=== PATIENT | male | born 1935 | race Caucasian/White ===

== ENCOUNTER → 2016-10-21 | Outpatient (CLI) | payer OTHER ==
[~2016-10-21] MED LIST: AMLO5TAB4 PO; ASPI81TA28 PO; ATOR10TA88 PO; DABI150C PO; DIGO0.122 PO; DORZ1SOL6 OPB; HYDR-5688 PO; OMEG10007 PO; PRS5 PO; SILO8CAP PO; SNK PO; TNR50 PO; TRAM-10 PO
[2016-10-21 18:10] LABS: ALT/SGPT 20 U/L (12-78); AST/SGOT 17 U/L (15-37); BLOOD UREA NITROGEN 24 mg/dl (7-18); BUN/CREATININE RATIO 21.5 (10-20); CALCIUM 9.6 mg/dl (8.5-10.1); CARBON DIOXIDE 24 mmol/L (21-32); CHLORIDE 108 mmol/L (98-107); GLUCOSE 87 mg/dl (70-99); POTASSIUM 4.3 mmol/L (3.5-5.1); SODIUM 140 mmol/L (136-145)
[2016-10-21 18:20] LABS: ALB/GLOB RATIO 1.2 (0.9-2); ALKALINE PHOSPHATASE 58 U/L (45-117); THYROID STIMULATING HORMONE 0.921 uIu/ml (0.300-4.500)
== END | disposition home or self-care (01) ==
LOC: C.LABBC 14:37
PROVIDERS: ATTEND Internal Medicine Cardiovascular Disease
DX: N40.1 Benign prostatic hyperplasia with lower urinary tract symptoms (principal); E78.5 Hyperlipidemia, unspecified; I10 Essential (primary) hypertension; K59.09 Other constipation; I48.0 Paroxysmal atrial fibrillation

== ENCOUNTER → 2016-10-25 | Outpatient (CLI) | payer OTHER ==
[2016-10-25 14:09] LABS: CHOLESTEROL/HDL RATIO 3.4
== END | disposition home or self-care (01) ==
LOC: C.LABBC 11:31
PROVIDERS: ATTEND Internal Medicine Cardiovascular Disease
DX: E78.5 Hyperlipidemia, unspecified (principal); I10 Essential (primary) hypertension

== ENCOUNTER → 2016-12-28 | Outpatient (CLI) | payer OTHER | END | disposition home or self-care (01) | LOC: C.LABSPEC 17:02 | PROVIDERS: ATTEND Urology | DX: R31.9 Hematuria, unspecified (principal); R35.1 Nocturia ==

== ENCOUNTER → 2017-03-03 | Outpatient (CLI) | payer OTHER ==
[~2017-03-03] MED LIST changes: +ATOR10TA82 PO; -ATOR10TA88 PO
== END | disposition home or self-care (01) ==
LOC: C.LABSPEC 17:14
PROVIDERS: ATTEND Urology
DX: N39.0 Urinary tract infection, site not specified (principal)

== ENCOUNTER → 2017-03-11 | Outpatient (CLI) | payer OTHER ==
--- NOTE | 2017-03-11 10:53 | DIAGNOSTIC IMAGING REPORT ---
THORACIC SPINE 2-VIEWS, L-SPINE MIN 4 VIEWS ROUTINE HISTORY: 82 years-old Male ACUTE BACK PAIN acute back pain status post trauma COMPARISON: Chest radiograph 10/14/2015, CT 09/11/2014 TECHNIQUE: 2 views of the thoracic spine and 5 views of the lumbar spine FINDINGS: THORACIC: Calcified hilar lymph nodes are present. Cardiac pacer leads overlie the heart, only partially imaged. There is atherosclerosis of the aorta. Fusion hardware of the cervical spine is noted. There is atherosclerosis of the carotid bulbs. Multilevel endplate bridging osteophytosis, intervertebral disc space narrowing and facet arthropathy is noted. No acute fracture or subluxation is identified. LUMBAR: The bones appear mildly demineralized. There are 5 lumbar type vertebral segments present. Right hip arthroplasty partially imaged. Multilevel prominent osteophytosis with facet arthropathy and intervertebral disc space narrowing noted. Disc space narrowing is most pronounced at the L3-L4. Remote compression fracture or limbus vertebra noted at L3, unchanged. No acute fracture or subluxation. IMPRESSION: 1. Mildly demineralized bones without acute fracture or subluxation. 2. Multilevel endplate spurring, facet arthropathy and intervertebral disc space narrowing. The above report was generated using voice recognition software. It may contain grammatical, syntax or spelling errors. Electronically signed by: Brannon Walker M.D. 03/11/2017 10:51 AM Dictated Date/Time: 03/11/2017 10:47 AM
[2017-03-11 10:56] LABS: BASO % 0.1 %; BASO ABS # 0.01 K/uL (0-0.2); COMPLETE YES; EOS % 1.5 %; HEMATOCRIT 44.6 % (42-52); IG% 0.6 %; LYMPH % 24.1 %; LYMPH ABS # 1.73 K/uL (1.2-3.4); MEAN CELL VOLUME 96.3 fL (80-100); MEAN CORPUSCULAR HGB CONC 33.2 g/dl (32-36); MEAN PLATELET VOLUME 11.1 fL (7.4-10.4); MONO % 8.3 %; NEUT % 65.4 %; PLATELET COUNT 155 K/uL (130-400); RED BLOOD COUNT 4.63 M/uL (4.7-6.1); WHITE BLOOD COUNT 7.19 K/uL (4.8-10.8)
== END | disposition home or self-care (01) ==
LOC: C.RADBC 09:03
PROVIDERS: ATTEND Internal Medicine
DX: M48.05 Spinal stenosis, thoracolumbar region (principal); M25.78 Osteophyte, vertebrae; M47.815 Spondylosis without myelopathy or radiculopathy, thoracolumbar region

== ENCOUNTER → 2017-04-07 | Outpatient (CLI) | payer OTHER | END | disposition home or self-care (01) | LOC: C.LABSPEC 17:15 | PROVIDERS: ATTEND Urology | DX: N39.0 Urinary tract infection, site not specified (principal) ==

== ENCOUNTER → 2017-05-25 | Outpatient (CLI) | payer OTHER ==
[2017-05-25 18:10] LABS: BLOOD UREA NITROGEN 24 mg/dl (7-18); CREATININE 0.96 mg/dl (0.60-1.40)
== END | disposition home or self-care (01) ==
LOC: C.LAB 17:12
PROVIDERS: ATTEND Urology
DX: R33.9 Retention of urine, unspecified (principal); N39.0 Urinary tract infection, site not specified; R31.0 Gross hematuria

== ENCOUNTER → 2017-05-27 | Outpatient (CLI) | payer OTHER ==
[~2017-05-27] MED LIST changes: +OPTIRAY 320 IV PRN
--- NOTE | 2017-05-27 17:26 | DIAGNOSTIC IMAGING REPORT ---
ABD/PELVIS COMBO CLINICAL HISTORY: 82 years-old Male presenting with R31.0 Gross hematuria. TECHNIQUE: Multidetector CT of the abdomen and pelvis was performed before and after the administration of intravenous contrast. IV contrast: 120 mL of Optiray 320. A dose lowering technique was used consistent with the principles of ALARA (as low as reasonably achievable). COMPARISON: 09/11/2014. CT DOSE (mGy.cm): The estimated cumulative dose is 1657.14 mGycm. FINDINGS: [employer] Representative topogram: Total right hip arthroplasty. Lung bases: Minimal basilar opacities, likely atelectasis. Partially visualized leads to the right atrium and right ventricular apex. Normal heart size. Coronary artery calcification. Calcified left hilar lymph node. No pericardial or pleural effusion. Liver: Nodular contour of the liver with relative expansion of the fat within the fissure for ligamentum teres. No focal lesion. Normal density. Patent hepatic vasculature. Biliary: No intrahepatic or extrahepatic biliary ductal dilatation. Normal gallbladder. Pancreas: Mild parenchymal atrophy. Scattered coarse calcifications in the pancreatic parenchyma suggest a history of chronic pancreatitis. No pancreatic inflammatory change at this time. Spleen: Normal. Splenule noted. Adrenal glands: Normal. Kidneys and ureters: Normal. No nephrolithiasis. Normal excretion from the bilateral kidneys. Few hypodensities noted in the kidneys, likely simple cysts. No hydronephrosis. No filling defects within the renal collecting systems. No evidence of a solid renal mass. Normal ureters. Bladder: Mild circumferential bladder wall thickening. Allowing for lack of homogeneity of contrast opacification of the bladder, no focal masslike thickening in the bladder. Pelvic organs: Prostate enlargement likely secondary to benign prostatic hyperplasia. Prominent median lobe hypertrophy. Bowel: Diverticulosis of the proximal sigmoid colon. Mild stool burden throughout normal caliber colon no bowel obstruction. Peritoneal cavity: No free fluid or intraperitoneal gas. Lymph nodes: No enlarged lymph nodes in the abdomen or pelvis. Vasculature: Atherosclerosis of the normal caliber abdominal aorta. IVC patent. Abdominal wall: Small fat-containing umbilical hernia. Fat-containing left inguinal hernia. Musculoskeletal: Total right hip arthroplasty. Limbus vertebral anatomy at L3 suspected. Degenerative changes of the spine and sacroiliac joints. IMPRESSION: 1. Circumferential bladder wall thickening likely indicating chronic bladder outlet obstruction. 2. Prostatomegaly likely indicates underlying benign prostatic hyperplasia. 3. No nephrolithiasis or hydronephrosis. 4. No solid renal mass or evidence of mass lesion in the urinary collecting system. 5. Relatively nodular appearance of the liver. This is equivocal for cirrhosis. Correlate for hepatocellular risk factors. 6. Diverticulosis. Electronically signed by: Shawn Rivers M.D. 05/27/2017 5:25 PM Dictated Date/Time: 05/27/2017 5:14 PM
== END | disposition home or self-care (01) ==
LOC: C.CTS 16:15
PROVIDERS: ATTEND Urology
DX: N40.0 Benign prostatic hyperplasia without lower urinary tract symptoms (principal); N32.9 Bladder disorder, unspecified; K57.90 Diverticulosis of intestine, part unspecified, without perforation or abscess without bleeding; K76.89 Other specified diseases of liver

== ENCOUNTER → 2017-07-06 | Outpatient (CLI) | payer OTHER ==
[~2017-07-06] MED LIST changes: -OPTIRAY 320 IV PRN
--- NOTE | 2017-07-06 10:58 | DIAGNOSTIC IMAGING REPORT ---
LUMBAR SPINE WITHOUT HISTORY: 82 years-old Male LUMBAR RADICULOPATHY acute lumbar spine pain with radicular symptoms of the bilateral lower extremities. COMPARISON: CT abdomen and pelvis 05/27/2017. TECHNIQUE: Multiple axial CT images of the lumbar spine were obtained without contrast. Coronal and sagittal reformatted images were obtained from the axial data set and were submitted for review. A dose lowering technique was used consistent with the principals of ALARA. FINDINGS: The bones appear moderately demineralized. No acute fracture or subluxation is identified. The posterior elements appear intact. No evidence of sacral insufficiency fracture. The imaged bilateral iliac bones also appear intact. Multilevel endplate spurring and facet arthrosis with intervertebral disc space narrowing seen most pronounced at L3-L4. The imaged paraspinal structures, intra-abdominal and intrapelvic contents demonstrate no acute abnormality. Mild nonspecific bilateral perinephric stranding. Moderate atherosclerosis of the aorta without aneurysm. No pathologic adenopathy identified. Exophytic intermediate attenuating 9 mm lesion of the inferior pole left kidney is indeterminate. T12-L1: Moderate facet arthrosis with small posterior disc osteophyte complex formation flattening the ventral thecal sac. No significant central canal or foraminal narrowing identified. L1-L2: Posterior spondylitic spurring with small circumferential annular disc bulge and moderate facet arthrosis. There is flattening of the ventral thecal sac without significant central canal or left foraminal narrowing. There is mild right foraminal stenosis. L2-L3: Moderate-sized circumferential annular disc bulge with ligamentum flavum thickening and moderate facet arthrosis. Thecal sac is narrowed to 7 mm in AP dimension resulting in moderate central canal stenosis. There is also mild to moderate bilateral foraminal narrowing. L3-L4: 4 mm retrolisthesis L3 on L4 with moderate to severe intervertebral disc space narrowing, ligamentum flavum thickening and at least moderate facet arthrosis. Additionally, there is posterior spondylitic spurring with posterior annular disc bulge which causes mild central canal and moderate bilateral foraminal narrowing. L4-L5: Posterior spondylitic spurring with circumferential annular disc bulge, severe facet arthrosis and ligamentum flavum thickening. Central canal is narrowed to approximately 4.5 mm in AP dimension with severe central canal and severe bilateral foraminal narrowing. L5-S1: Posterior disc bulge favoring the right lateral recess and right foramen is noted along with posterior spondylitic spurring, severe facet arthrosis and ligament of flavum thickening. These changes cause mild central canal, moderate to severe right and moderate left foraminal narrowing. IMPRESSION: 1. Multilevel advanced discogenic degenerative changes and facet arthrosis as detailed above without evidence of acute fracture or subluxation. 2. At L4-L5, posterior spondylitic spurring with circumferential annular disc bulge, severe facet arthrosis and ligamentum flavum thickening causes severe central canal and severe bilateral foraminal narrowing. 3. At L2-L3, moderate sized circumferential annular disc bulge with ligamentum flavum thickening and moderate facet arthrosis causes moderate central canal and mild to moderate bilateral foraminal narrowing. 4. Indeterminate 9 mm soft tissue attenuating lesion of the inferior pole left kidney suggests complex cyst or neoplasm. This could be correlated with CT renal protocol to further evaluate. The above report was generated using voice recognition software. It may contain grammatical, syntax or spelling errors. Electronically signed by: Brannon Walker M.D. 07/06/2017 10:56 AM Dictated Date/Time: 07/06/2017 10:43 AM
== END | disposition home or self-care (01) ==
LOC: C.CTS 10:21
PROVIDERS: ATTEND Pain Medicine Interventional Pain Medicine
DX: M51.16 Intervertebral disc disorders with radiculopathy, lumbar region (principal); N28.9 Disorder of kidney and ureter, unspecified

== ENCOUNTER → 2017-11-14 | Outpatient (CLI) | payer OTHER ==
[2017-11-14 13:06] LABS: BASO % 0.6 %; BASO ABS # 0.03 K/uL (0-0.2); EOS % 2.7 %; EOS ABS # 0.13 K/uL (0-0.5); HEMATOCRIT 43.8 % (42-52); HEMOGLOBIN 14.5 g/dL (14.0-18.0); IG# 0.02 K/uL (0.00-0.02); LYMPH % 32.4 %; LYMPH ABS # 1.56 K/uL (1.2-3.4); MEAN CELL VOLUME 95.2 fL (80-100); MEAN CORPUSCULAR HEMOGLOBIN 31.5 pg (25-34); MEAN CORPUSCULAR HGB CONC 33.1 g/dl (32-36); MEAN PLATELET VOLUME 11.3 fL (7.4-10.4); MONO % 6.9 %; MONO ABS # 0.33 K/uL (0.11-0.59); NEUT ABS # 2.74 K/uL (1.4-6.5); PLATELET COUNT 168 K/uL (130-400); RED CELL DISTRIBUTION WIDTH CV 14.2 % (11.5-14.5); RED CELL DISTRIBUTION WIDTH SD 49.5 fL (36.4-46.3); WHITE BLOOD COUNT 4.81 K/uL (4.8-10.8)
[2017-11-14 14:04] LABS: ALBUMIN 3.8 gm/dl (3.4-5.0); ALKALINE PHOSPHATASE 84 U/L (45-117); ALT/SGPT 24 U/L (12-78); AST/SGOT 21 U/L (15-37); BLOOD UREA NITROGEN 24 mg/dl (7-18); CALCIUM 8.8 mg/dl (8.5-10.1); CARBON DIOXIDE 26 mmol/L (21-32); CHOLESTEROL 120 mg/dl (0-200); CREATININE 1.05 mg/dl (0.60-1.40); GLUCOSE 97 mg/dl (70-99); LDL CHOLESTEROL CALCULATED 73 mg/dl; POTASSIUM 4.4 mmol/L (3.5-5.1); SODIUM 142 mmol/L (136-145)
== END | disposition home or self-care (01) ==
LOC: C.LABBC 09:43
PROVIDERS: ATTEND Internal Medicine Cardiovascular Disease
DX: E78.5 Hyperlipidemia, unspecified (principal); I10 Essential (primary) hypertension; I49.5 Sick sinus syndrome; G47.33 Obstructive sleep apnea (adult) (pediatric); I48.0 Paroxysmal atrial fibrillation; G95.9 Disease of spinal cord, unspecified; R97.20 Elevated prostate specific antigen [PSA]; Z95.0 Presence of cardiac pacemaker; Z86.73 Personal history of transient ischemic attack (TIA), and cerebral infarction without residual deficits; Z79.01 Long term (current) use of anticoagulants

== ENCOUNTER → 2017-12-02 | Outpatient (CLI) | payer OTHER | END | disposition home or self-care (01) | LOC: C.LABBC 10:20 | PROVIDERS: ATTEND Urology | DX: R31.0 Gross hematuria (principal); N39.0 Urinary tract infection, site not specified ==

== ENCOUNTER 2022-08-25 07:31 | Inpatient (IN) ==
--- NOTE | 2022-08-04 12:16 | PAT Medication Instructions ---
Medication Instructions Date of Service August 04, 2022 Home Medications Medication Instructions Recorded dabigatran etexilate 150 mg 150 mg PO BID #180 caps 07/27/21 capsule (Pradaxa) atorvastatin 10 mg tablet 10 mg PO QPM #90 tabs 12/04/21 finasteride 5 mg tablet 5 mg PO QPM #90 tabs 02/10/22 potassium chloride 10 mEq 10 meq PO .COMPLEX #30 tabs 07/07/22 tablet,extended release multivitamin (Multiple Vitamins tablet) 1 tab PO QAM acetaminophen 650 mg tablet,extended release (Arthritis Pain Relief (acetaminophen) ER) 650 mg PO Q12H PRN Pain omega-3 fatty acids 1,000 mg capsule 1,000 mg PO QPM sildenafil (pulm.hypertension) 20 mg tablet 20 mg PO DAILY PRN Sexual Activity dabigatran etexilate 150 mg capsule (Pradaxa) 150 mg PO BID atorvastatin 10 mg tablet 10 mg PO QPM finasteride 5 mg tablet 5 mg PO QPM potassium chloride 10 mEq tablet,extended release 10 meq PO .COMPLEX amlodipine 2.5 mg tablet 2.5 mg PO QAM furosemide 20 mg tablet 20 mg PO DAILY PRN Edema tamsulosin 0.4 mg capsule 0.4 mg PO QAM turmeric 400 mg capsule 400 mg PO QAM ASK your prescriber and surgeon dabigatran etexilate 150 mg capsule (Pradaxa) 150 mg PO BID STOP taking 2 weeks before surgery omega-3 fatty acids 1,000 mg capsule 1,000 mg PO QPM turmeric 400 mg capsule 400 mg PO QAM STOP taking 48 hours before surgery sildenafil (pulm.hypertension) 20 mg tablet 20 mg PO DAILY PRN Sexual Activity DO NOT take the morning of surgery multivitamin (Multiple Vitamins tablet) 1 tab PO QAM potassium chloride 10 mEq tablet,extended release 10 meq PO .COMPLEX furosemide 20 mg tablet 20 mg PO DAILY PRN Edema Take morning of surgery With a small sip of water, OTHERWISE NOTHING TO EAT OR DRINK AFTER MIDNIGHT: acetaminophen 650 mg tablet,extended release (Arthritis Pain Relief (acetaminophen) ER) 650 mg PO Q12H PRN Pain (if needed) amlodipine 2.5 mg tablet 2.5 mg PO QAM tamsulosin 0.4 mg capsule 0.4 mg PO QAM Take evening before surgery acetaminophen 650 mg tablet,extended release (Arthritis Pain Relief (acetaminophen) ER) 650 mg PO Q12H PRN Pain (if needed) atorvastatin 10 mg tablet 10 mg PO QPM finasteride 5 mg tablet 5 mg PO QPM potassium chloride 10 mEq tablet,extended release 10 meq PO .COMPLEX (if needed) furosemide 20 mg tablet 20 mg PO DAILY PRN Edema (if needed) Insulin Dependent Diabetic Patients * Test your blood sugar the morning of surgery * If Blood Sugar is GREATER THAN 150, take HALF of your regular dose of: * If Blood Sugar is LESS THAN 150, DO NOT TAKE ANY: Other Notes If you have any questions please call us at [phone] or [phone] or [phone] or [phone]
--- NOTE | 2022-08-11 11:37 | Anesthesiology Consultation ---
Date of Service August 11, 2022 Assessment & Plan (1) Encounter for pre-operative examination: - upcoming [place] cardiology pre-op evaluation 08/13/22. - Pt and son were instructed to check with surgeon and prescriber on Pradaxa instructions and to call with Eliquis instructions if medication changes prior to surgery. - Medtronic pacemaker. - cardiology 04/28/22 [place]: "...Hypertension, LVH, Hypercholesterolemia, Paroxysmal Atrial Fibrillation, CVA s/p tPA, June 2012, and Sick Sinus Syndrome s/p Permanent Dual Chamber Pacemaker who presents today for follow-up in our Device Clinic...pacemaker is quickly approaching HELADIO and we will arrange to have his pacemaker generator exchanged out for a Medtronic Device...remains stable cardiac standpoint his exertional tolerance and stamina remained stable. Patient still gets up every day goes to work and he takes care of his property...is able walk using a rolling walker...has not experienced any angina pectoris or anginal equivalent symptoms, had overt evidence of heart failure, nor has he had any symptoms attributable to his rate controlled atrial fibrillation which he appears to be in most of the time...has not had any new neurologic symptoms suggestive of recurrent CVA. He does not experience claudication with his day-to-day activities. Patient does experience some lower extremity edema throughout the day but it is typically resolved when he first wakes up in the morning. He does use a diuretic on occasion and that helps to minimize the edema... is compliant with his medications and has not had any adverse side effects. Due to his insurance, the patient will need to switch from Pradaxa 150 mg which he currently has a large supply of -- to Eliquis 5 mg b.i.d. Patient is leaving to go to [place] on 05/18/2022 and is planning to come back in June 2022. He does have a gse mechanic in [place] if anything is necessary while he is there -- however we will plan on having his pacemaker generator changed out here before he leaves. This will be scheduled with Dr. King. Since we are not putting in new leads, it is reasonable to delay his follow-up device interrogation until June of 2022..." Chart Review Chart Review: Pending: Refer to Additional Notes / Consult section and Patient seen in Pre Admission Testing Teaching & Discussion Pre-Anesthesia Teaching/Discussion Notes: Instructed NPO after midnight before surgery, except medications with 15 cc of water. Medication instructions provided according to the PAT guidelines. History Surgery Operation Date: 08/25/22 11:35 Proposed Procedures p L4-L5 Decompression, Spinal Cord Monitoring - Malcom Gregg DO Height/Weight Height: 5 ft 6 in Weight: 83.461 kg Allergies Allergy/AdvReac Type Severity Reaction Status Date / Time diazepam Allergy Unknown per PCP Verified 08/04/22 10:57 note Medications Home Medications Medication Instructions Recorded Confirmed Last Taken multivitamin (Multiple Vitamins 1 tab PO QAM 11/17/18 08/04/22 02/28/21 tablet) acetaminophen 650 mg 650 mg PO Q12H PRN Pain 08/07/20 08/04/22 Unknown tablet,extended release (Arthritis Pain Relief (acetaminophen) ER) omega-3 fatty acids 1,000 mg 1,000 mg PO QPM 11/03/20 08/04/22 02/28/21 capsule sildenafil (pulm.hypertension) 20 20 mg PO DAILY PRN Sexual Activity 03/01/21 08/04/22 Unknown mg tablet atorvastatin 10 mg tablet 10 mg PO QPM #90 tabs 12/04/21 08/04/22 Unknown finasteride 5 mg tablet 5 mg PO QPM #90 tabs 02/10/22 08/04/22 Unknown potassium chloride 10 mEq 10 meq PO .COMPLEX #30 tabs 07/07/22 08/04/22 Unknown tablet,extended release amlodipine 2.5 mg tablet 2.5 mg PO QAM 08/04/22 08/04/22 Unknown furosemide 20 mg tablet 20 mg PO DAILY PRN Edema 08/04/22 08/04/22 Unknown tamsulosin 0.4 mg capsule 0.4 mg PO QAM 08/04/22 08/04/22 Unknown turmeric 400 mg capsule 400 mg PO QAM 08/04/22 08/04/22 Unknown dabigatran etexilate 150 mg 150 mg PO BID #180 caps 08/09/22 Unknown capsule (Pradaxa) Past Medical History Medical History (Updated 08/11/22 @ 12:04 by Lu Ward PA-C) Afib follows with Dr. Gates BPH (benign prostatic hyperplasia) Chronic constipation Chronic prostatitis Depression Difficulty with insertion of urinary catheter Dyslipidemia Hearing deficit [place] History of COVID-2021 > no hospitalized> symptoms resolved History of stroke 2012. RUE/RLE weakness. HTN (hypertension) controlled, stable per pt Incomplete bladder emptying Left ventricular hypertrophy Nocturia Sick sinus syndrome s/p pacemaker Sleep apnea unable to tolerate CPAP Spondylolisthesis of cervical region Stenosis, 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 Patient denies h/o seizures, heart attack, heart failure, DM, blood clots or bl ood transfusions. Exercise / Class Metabolic Activity III < 4 Walking/Shop/Light housework (denies chest discomfort or shortness of breath with usual activities) Past Family History Family History Brother Alzheimer disease Deafness Mother Hypertension Other Family history non-contributory Past Surgical History Surgical History History of arthroscopy of right knee History of cardiac radiofrequency ablation History of colonoscopy History of ear surgery Rt History of right hip replacement History of transurethral resection of prostate S/P placement of cardiac pacemaker placed 2012. SSS. battery changed 2022. medtronic. checked within last 2 mo. Past Anesthesia History No Hx of Anesthesia Complications and No Family Hx of Anesthesia Complications History of PONV No Hx of PONV and No Hx of Motion Sickness Social History Smoking Status: Never smoker Do You Dip or Chew Tobacco: No Hx Alcohol Use: Yes Alcohol type: wine alcohol intake frequency: a few times a month Hx Substance Use: No substance use type: does not use Review of Systems Patient denies chest pain, shortness of breath, dyspnea on exertion, reflux, fever, chills, cough, wheezing, or palpitations. Physical Exam Vital Signs Vitals BP 132/80 P 66 SP02 98% on RA RESP 18 Physical Full cervical extension range of motion without pain TMD 3.5 finger breadths Mallampati Score Dentition: multiple caps/crowns, denies chipped or loose teeth, implants or bridges Lungs: normal respiratory effort. Clear throughout to auscultation, no adventitious breath sounds Cardiac: regular rate and rhythm, no murmurs noted Carotid arteries: negative bruit bilat Lab Results Anesthesia Preop Results Results Anesthesia Widget: WBC 6.15 K/ul (4.8-10.8) 08/11/22 Hgb 17.0 g/dl (14.0-18.0) 08/11/22 Hct 50.1 % (42.0-52.0) 08/11/22 Plt 131 K/uL (130-400) 08/11/22 Na 142 mmol/L (136-145) 08/11/22 K 4.0 mmol/L (3.5-5.1) 08/11/22 Cl 107 mmol/L (98-107) 08/11/22 CO2 29 mmol/L (21-32) 08/11/22 BUN 20 mg/dl (6-23) 08/11/22 Creat 0.96 mg/dl (0.6-1.4) 08/11/22 Glucose Level 96 mg/dl (70-99(Fasting)) 08/11/22 PT 13.8 Seconds (9.0-12.0) H 08/11/22 PTT 41.9 Seconds (21.0-31.0) H 08/11/22 INR 1.3 (0.9-1.1) H 08/11/22 Urine Color Yellow 08/11/22 Urine Appearance Clear (Clear) 08/11/22 Urine pH 6.5 (4.5-7.5) 08/11/22 Urine Specific [place] 1.018 (1.000-1.030) 08/11/22 Urine Protein Negative (Negative) 08/11/22 Urine Glucose (UA) Negative (Negative) 08/11/22 Urine Ketones Negative (Negative) 08/11/22 Urine Blood Negative (Negative) 08/11/22 Urine Nitrite Negative (Negative) 08/11/22 Urine Bilirubin Negative (Negative) 08/11/22 Urine Urobilinogen Negative (Negative) 08/11/22 Urine Leukocyte Esterase Negative (Negative) 08/11/22 Blood Type A Positive 08/11/22 Antibody Screen NEGATIVE 08/11/22 Testing Electrocardiogram Date: 08/11/22 Ventricular paced rhythm, rate 70 bpm Chest X-Ray Date: 08/11/22 Dual lead pacemaker is seen. Cardiomegaly is noted. The lungs are clear. Trace bilateral pleural effusions. IMPRESSION: Trace bilateral pleural effusions. Otherwise no acute abnormality. Other Testing Pacemaker 05/06/22 Medtronic Mode AAIR DDDR Neck CTA 03/01/21 1. No stenosis or dissection within the bilateral common carotid, cervical internal carotid or vertebral arteries. 2. Mild to moderate plaque within the proximal bilateral internal carotid arteri es without stenosis. COVID-19 Risk Screen Screening Information COVID-19 Screen Date: 08/11/22 Exposure 21 Days Family/Household +COVID Last 21 Days: No Exposure 10 Days Any COVID Exposure Last 10 Days: No Symptoms Last 10 Days Experienced COVID Sx Last 10 Days: No + COVID 0-90 Days COVID + in Last 0-90 Days: No
[~2022-08-25 07:31] MED LIST changes: +ACETAMINOPHEN 500 MG TAB PO SCH; -AMLO5TAB4 PO; -ASPI81TA28 PO; -ATOR10TA82 PO; +CeleBREX 200 MG CAP PO SCH; -DABI150C PO; -DIGO0.122 PO; -DORZ1SOL6 OPB; +GABAPENTIN 300 MG CAP PO SCH; -HYDR-5688 PO; +LR 15ML/HR IV SCH; -OMEG10007 PO; -PRS5 PO; -SILO8CAP PO; -SNK PO; -TNR50 PO; -TRAM-10 PO; +ceFAZolin 2000MG 2,000 MG/15 ML SYR IV SCH
[2022-08-25] MEDS ORDERED: ATROPINE SULFATE 0.1 MG/ML 10ML SYR IV PRN (08:37)
[2022-08-25] MEDS ORDERED: HYDROmorphone INJ 2 MG/ML SYR/VIAL IV PRN (08:37)
[2022-08-25] MEDS ORDERED: ePHEDrine sulfate 50 MG/ML AMP IV PRN (08:37)
[2022-08-25] MEDS ORDERED: ONDANSETRON INJ 2 MG/ML 2 ML VIAL IV PRN ×2 (08:37→12:17)
--- NOTE | 2022-08-25 08:56 | History & Physical Bridge Note ---
Date of Service August 25, 2022 History & Physical Bridge Note I have examined the patient, reviewed the History & Physical and in the interval since the performance of the History & Physical I have noted the following changes of clinical significance: no changes noted
--- NOTE | 2022-08-25 08:57 | History & Physical Report ---
Date of Service August 25, 2022 Assessment & Plan (1) Neurogenic claudication due to lumbar spinal stenosis: Plan: L4-L5 decompression History of Present Illness Chief Complaint: Back and bilateral leg pain Primary Care Provider: Shawn Gilbert MD This is an 87-year-old male presents with chronic persistent back and leg pain after failing course of nonoperative care is here for surgical invention. Allergies Allergy/AdvReac Type Severity Reaction Status Date / Time diazepam Allergy Unknown per PCP Verified 08/25/22 08:10 note Home Medications Medication Instructions Recorded Confirmed Type multivitamin (Multiple Vitamins 1 tab PO QAM 11/17/18 08/25/22 History tablet) acetaminophen 650 mg 650 mg PO Q12H PRN Pain 08/07/20 08/25/22 History tablet,extended release (Arthritis Pain Relief (acetaminophen) ER) omega-3 fatty acids 1,000 mg 1,000 mg PO QPM 11/03/20 08/25/22 History capsule sildenafil (pulm.hypertension) 20 20 mg PO DAILY PRN Sexual Activity 03/01/21 08/25/22 History mg tablet atorvastatin 10 mg tablet 10 mg PO QPM #90 tabs 12/04/21 08/25/22 Rx finasteride 5 mg tablet 5 mg PO QPM #90 tabs 02/10/22 08/25/22 Rx potassium chloride 10 mEq 10 meq PO .COMPLEX #30 tabs 07/07/22 08/25/22 Rx tablet,extended release amlodipine 2.5 mg tablet 2.5 mg PO QAM 08/04/22 08/25/22 History furosemide 20 mg tablet 20 mg PO DAILY PRN Edema 08/04/22 08/25/22 History tamsulosin 0.4 mg capsule 0.4 mg PO QAM 08/04/22 08/25/22 History turmeric 400 mg capsule 400 mg PO QAM 08/04/22 08/25/22 History dabigatran etexilate 150 mg 150 mg PO BID #180 caps 08/09/22 08/25/22 Rx capsule (Pradaxa) Past Med/Surg History Medical History Afib BPH (benign prostatic hyperplasia) Chronic constipation Chronic prostatitis Depression Difficulty with insertion of urinary catheter Dyslipidemia Hearing deficit History of COVID-19 History of stroke HTN (hypertension) Incomplete bladder emptying Left ventricular hypertrophy Nocturia Pacemaker battery depletion Sick sinus syndrome Sleep apnea Spondylolisthesis of cervical region Stenosis, 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 Surgical History History of arthroscopy of right knee History of cardiac radiofrequency ablation History of colonoscopy History of ear surgery History of right hip replacement History of transurethral resection of prostate S/P placement of cardiac pacemaker Family History Brother Alzheimer disease Deafness Mother Hypertension Other Family history non-contributory Social History Smoking Status: Never smoker Second Hand Exposure: No; Do You Dip or Chew Tobacco: No; Hx Alcohol Use: Yes Alcohol type: wine Alcohol Intake Frequency: 2-4 x/Month Hx Substance Use: No Preferred Language: Norwegian Communication Ability: Effective Visual Impairment: Limited Hearing Ability: Use of Hearing Aid Blue Leather Setter Required: No Beliefs That Will Affect Care: None marital status: Current Living Situation: Alone current occupational status: retired Feels Safe at Home: Yes Safety Concerns: Feels Safe At This Time Childhood Exposure to Second-Hand Smoke: Yes Diet: regular caffeine: Yes Dental Care, Regularly: Yes Physical Activity Frequency: 1-2 Times per Week Physical Activity Frequency Comment: 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
[2022-08-25] MEDS ORDERED: BUPIVACAINE/EPINEPHRINE 0.25% 1:200,000 30 ML VIAL ONE (09:03)
[2022-08-25] MEDS ORDERED: ceFAZolin 330 MG/ML 1 GM VIAL ONE (09:03)
[2022-08-25] MEDS ORDERED: PROPOFOL IV EMULSION 10 MG/ML 20 ML VIAL IV ONE (09:05)
[2022-08-25] MEDS ORDERED: fentaNYL citrate PF 100 MCG/2 ML VIAL ONE ×2 (09:05→11:26)
[2022-08-25] MEDS ORDERED: ONDANSETRON INJ 2 MG/ML 2 ML VIAL ONE (09:05)
[2022-08-25] MEDS ORDERED: DEXAMETHASONE SOD INJ 4 MG/ML VIAL ONE (09:05)
[2022-08-25] MEDS ORDERED: ROCURONIUM BROMIDE 10 MG/ML 5 ML VIAL IV ONE (09:06)
[2022-08-25] MEDS ORDERED: ePHEDrine sulfate 50 MG/ML SYR ONE (10:06)
[2022-08-25] MEDS ORDERED: PHENYLEPHRINE 100MCG/ML 5ML SYR ONE (10:07)
[2022-08-25] MEDS ORDERED: SUGAMMADEX SODIUM 200 MG/2 ML VIAL IV ONE (10:25)
--- NOTE | 2022-08-25 10:29 | Operative Report ---
Post Operative Report Pre & Post Diagnosis Operation Date: 08/25/22 09:15 Preop diagnosis Lumbar spinal stenosis with neurogenic claudication Postop diagnosis Same I identified the patient and participated in the time-out.: Yes Procedure Operation Date: 08/25/22 09:15 #1 lumbar decompression bilateral medial facetectomies and foraminotomies L3-L4 L4-L5. Surgeon Malcom Gregg DO Fluid Dynamicist Tayla Mark Estimated Blood Loss 50 Findings Consistent with Post-Op Diagnosis Specimens None Indications This is an 87-year-old male who presents with evidence of neurogenic claudi cation after failing course of nonoperative care is here for surgical intervention. Description of Procedure Patient met with identified informed consent obtained. Patient was then taken the operative suite underwent a patient placed in a prone position the Jex table top of the Ty frame. All bony promises well-padded eyes inspected to ensure no external pressure placed upon them. This point the lumbar spine was prepped and draped in a sterile fashion. Sharp dissection with assistance of Bovie cautery to form down to and exposing the lamina and interlaminar space at L4-L5. And verified position with fluoroscopy. Then performed a midline decompression with removal of the entire lamina of for partial lamina of L3 including bilateral medial facetectomies and foraminotomies addressing severe spinal stenosis. Incision was then copiously irrigated and a 15 round JOSEPHINE drain inserted. The incision was then closed with 1 Vicryl to fascia 2-0 Vicryl subcutaneously and 4 Monocryl for final skin closure. Steri-Strips and sterile dressing placed. Patient awakened and taken to PACU in stable condition. Please note Tyala Mark was present during the entire procedure involved the patient positioning complex portions of the surgery and final skin closure. I attest to the content of the Intraoperative Record and any orders documented therein. Any exceptions are noted below.
[2022-08-25] MEDS: fentaNYL citrate PF 100 MCG/2 ML VIAL IV PRN ×2 (11:27→11:32)
--- NOTE | 2022-08-25 12:11 | Anesthesiology Progress Note ---
Date of Service August 25, 2022 Anesthesia Post Procedure Vital Signs Vital Signs: Temp Pulse Resp BP Pulse Ox O2 Del Method O2 Flow Rate 08/25/22 11:50 60 12 161/88 H 98 Nasal Cannula 2 08/25/22 11:40 36.4 C L 60 12 170/91 H 96 Nasal Cannula 2 08/25/22 11:30 60 12 170/89 H 97 Room Air 08/25/22 11:15 60 12 161/99 H 97 Room Air 08/25/22 11:05 60 12 164/93 H 100 Oxymask 4 08/25/22 10:55 60 12 159/86 H 100 Oxymask 6 08/25/22 10:45 36.0 C L 64 16 153/92 H 100 Oxymask 8 08/25/22 08:07 37.1 C 72 20 171/90 H 98 Room Air Pain Intensity Lower Back: Pain Intensity: 4 Transfer of Care Handoff Completed per policy Notes Mental Status: alert / awake / arousable and participated in evaluation Patient Amnestic to Procedure: Yes Nausea / Vomiting: adequately controlled Pain: adequately controlled Airway Patency, RR, SpO2: stable & adequate BP & HR: stable & adequate Hydration State: stable & adequate Anesthetic Complications: no major complications apparent and Pt Satisfied with anesthetic care
[2022-08-25] MEDS ORDERED: bisacodyL 10 MG SUPP PR PRN (12:17)
[2022-08-25] MEDS ORDERED: METOCLOPRAMIDE HCL INJ 5 MG/ML 2 ML VIAL IV PRN (12:17)
[2022-08-25] MEDS ORDERED: LORazepam 0.5 MG TAB PO PRN (12:17)
[2022-08-25] MEDS ORDERED: hydrOXYzine HCl 25 MG TAB PO PRN (12:17)
[2022-08-25] MEDS ORDERED: ALUMINUM/MAGNESIUM SUSP 30 ML UDC PO PRN (12:17)
[2022-08-25] MEDS ORDERED: FUROSEMIDE 20 MG TAB PO PRN (12:17)
[2022-08-25] MEDS ORDERED: NALOXONE HCL 0.4 MG/1 ML VIAL/CARP IV PRN (12:17)
[2022-08-25] MEDS ORDERED: SOD PHOSPHATE/SOD BIPHOSPHATE ENEMA 132 ML BTL PR PRN (12:17)
[2022-08-25] MEDS ORDERED: PROMETHAZINE HCL 12.5 MG in SODIUM CHLORIDE 0.9% 50 ML IV PRN (12:17)
[2022-08-25] MEDS ORDERED: ACETAMINOPHEN 1,000 MG/100 ML VIAL IV PRN (12:17)
[2022-08-25] MEDS ORDERED: HYDROmorphone INJ 0.5 MG/0.5 ML SYR IV PRN (12:17)
[2022-08-25] MEDS ORDERED: traMADol HCL 50 MG TABLET PO PRN (12:17)
[2022-08-25] MEDS ORDERED: FAMOTIDINE 20 MG TAB PO PRN (12:17)
[2022-08-25] MEDS ORDERED: DO NOT ADMINISTER PNEUMOCOCCAL VACCINE PRN (12:17)
[2022-08-25] MEDS ORDERED: DO NOT ADMINISTER FLU VACCINE PRN (12:17)
[2022-08-25] MEDS ORDERED: oxyCODONE HCL IR 5 MG TAB (IMMEDIATE RELEASE) PO PRN (12:17)
[2022-08-25] MEDS ORDERED: LORazepam 2 MG/1 ML VIAL IV PRN (12:17)
[2022-08-25] MEDS ORDERED: diphenhydrAMINE Capsule 25 MG CAP PO PRN (12:17)
[2022-08-25] MEDS ORDERED: ONDANSETRON 4 MG OD TAB PO PRN (12:17)
[2022-08-25] MEDS ORDERED: MAGNESIUM HYDROXIDE SUSP 30 ML UDC PO PRN (12:17)
--- NOTE | 2022-08-25 13:14 | Fluoroscopy Report ---
INTRAOPERATIVE RADIOGRAPHS CLINICAL HISTORY: L4-L5 spinal surgery. Fluoro time: 7 seconds Ka,r: 4.80 mGy FINDINGS: A single spot fluoroscopic image of the lumbar spine is presented. A surgical probe project s posterior to the superior endplate of the L5 vertebral body. IMPRESSION: Intraoperative image from lumbar spinal fusion surgery as above. Electronically signed by: Darci James M.D. 08/25/2022 1:12 PM
[2022-08-25] MEDS: SODIUM CHLORIDE 0.9% 1000ML 1,000 ML IV SCH ×2 (13:23→22:54)
--- NOTE | 2022-08-25 13:25 | Hospitalist Consultation ---
Date of Consultation August 25, 2022 Assessment & Plan (1) Neurogenic claudication due to lumbar spinal stenosis: s/p #1 lumbar decompression bilateral medial facetectomies and foraminotomies L3-L4 L4-L5 with Dr Gregg on 08/25. EBL 50cc Pain control/bowel regimen/PT/OT per primary service DVT proph: SCDs, shabana hose Messaged primary to see when able to resume his pradaxa given hx CVA, but suspect able to resume in AM. Monitor CBC/CMP/Mag in AM (2) Atrial fibrillation, persistent: Follows locally w/ Dr Gates, seen by Roberto Cisneros prior to surgery. Also carries hx HTN, LVH, HLD, SSS s/p pacemaker w/ recent pacemaker check 08/13 Continues on amlodipine daily Pradaxa to resume when ok w/ surgery Keep K~4, mag ~2 on AM labs (3) Hypertension: BP stable On amlodipine daily, continued of note, takes lasix 20mg prn edema (4) Cardiac pacemaker in situ: noted (5) History of stroke: hx of such, 2012 s/p TPA. residual R sided deficits, nothing new On pradaxa, held pre-op -- messaged primary to see about timing to resume SCDs/shabana hose to be utilized in the meantime Son/patient instructed to alert of any worrisome signs. Plan Thank you for allowing hospitalist service to participate in the care of Mr Milton. Hospitalist service will follow along. Supervising Physician Co-Signing Physician Notes The patient was seen by me. The chart was reviewed. Case discussed with ANNE Gunderson. Agree with assessment and plan History of Present Illness Reason for Consultation: med management Requesting Physician: Dr Gregg Attending Physician: Malcom Gregg, DO History of Present Illness 87yo male with PMHx significant for Hypertension, LVH, Hypercholesterolemia, Persistent Atrial Fibrillation (asymptomatic, rate controlled, anticoagulated), CVA s/p tPA June 2012, Sick Sinus Syndromes/p Permanent Dual Chamber Pacemaker s/p Generator Change-out 05/06/22, and Lumbar Spinal Stenosiswho presented for lumbar decompression bilateral medial facetectomies and foraminotomies L3-L4, L4-L5. EBL 50cc. Evaluated in room 311 post-operatively, son at bedside, doing well. Never had prior back surgery but has had hip done in the past. Pain controlled, drinking some water and then going to have some [place] ice. No fever/chills, chest pain, shortness of breath. Seen by cardiology pre-op, instructions to hold Pradaxa for 3 days prior to surgery. Residual R sided weakness associated w/ prior CVA but no new neurological symptoms suggestive of recurrent CVA. They are unsure when timing to resume but have his medications in bag in the room. Discussed will touch base w/ Dr Gregg for timing to resume but suspect likely in AM. No increased weakness, but to monitor/alert for any changes. Discussed living, he lives in a house. Would like some rehab. Son also in agreement at bedside. Discussed will have evals in AM w/ therapy and alert CM of their wants. Questions/concerns addressed at this time. Allergies Allergy/AdvReac Type Severity Reaction Status Date / Time diazepam Allergy Unknown per PCP Verified 08/25/22 08:10 note Home Medications Medication Instructions Recorded Confirmed Type multivitamin (Multiple Vitamins 1 tab PO QAM 11/17/18 08/25/22 History tablet) acetaminophen 650 mg 650 mg PO Q12H PRN Pain 08/07/20 08/25/22 History tablet,extended release (Arthritis Pain Relief (acetaminophen) ER) omega-3 fatty acids 1,000 mg 1,000 mg PO QPM 11/03/20 08/25/22 History capsule sildenafil (pulm.hypertension) 20 20 mg PO DAILY PRN Sexual Activity 03/01/21 08/25/22 History mg tablet atorvastatin 10 mg tablet 10 mg PO QPM #90 tabs 12/04/21 08/25/22 Rx finasteride 5 mg tablet 5 mg PO QPM #90 tabs 02/10/22 08/25/22 Rx potassium chloride 10 mEq 10 meq PO .COMPLEX #30 tabs 07/07/22 08/25/22 Rx tablet,extended release amlodipine 2.5 mg tablet 2.5 mg PO QAM 08/04/22 08/25/22 History furosemide 20 mg tablet 20 mg PO DAILY PRN Edema 08/04/22 08/25/22 History tamsulosin 0.4 mg capsule 0.4 mg PO QAM 08/04/22 08/25/22 History turmeric 400 mg capsule 400 mg PO QAM 08/04/22 08/25/22 History dabigatran etexilate 150 mg 150 mg PO BID #180 caps 08/09/22 08/25/22 Rx capsule (Pradaxa) Patient History Medical History Afib follows with Dr. Gates BPH (benign prostatic hyperplasia) Chronic constipation Chronic prostatitis Depression Difficulty with insertion of urinary catheter Dyslipidemia Hearing deficit BL EDGE History of COVID-19 2021 > no hospitalized> symptoms resolved History of stroke 2012. RUE/RLE weakness. HTN (hypertension) controlled, stable per pt Incomplete bladder emptying Left ventricular hypertrophy Nocturia Pacemaker battery depletion Sick sinus syndrome s/p pacemaker Sleep apnea unable to tolerate CPAP Spondylolisthesis of cervical region Stenosis, 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 Surgical History History of arthroscopy of right knee History of cardiac radiofrequency ablation History of colonoscopy History of ear surgery Rt History of right hip replacement History of transurethral resection of prostate S/P placement of cardiac pacemaker placed 2012. SSS. battery changed 2022. medtronic. checked within last 2 mo. Family History Brother Alzheimer disease Deafness Mother Hypertension Other Family history non-contributory Social History Smoking Status: Never smoker Second Hand Exposure: No; Do You Dip or Chew Tobacco: No; Hx Alcohol Use: Yes Alcohol type: wine Alcohol Intake Frequency: 2-4 x/Month Hx Substance Use: No Preferred Language: Persian Communication Ability: Effective Visual Impairment: Limited Hearing Ability: Use of Hearing Aid Closing Specialist Required: No Beliefs That Will Affect Care: None marital status: Current Living Situation: Alone current occupational status: retired Feels Safe at Home: Yes Safety Concerns: Feels Safe At This Time Childhood Exposure to Second-Hand Smoke: Yes Diet: regular caffeine: Yes Dental Care, Regularly: Yes Physical Activity Frequency: 1-2 Times per Week Physical Activity Frequency Comment: with hop trainer Seatbelt Use: always Sunscreen Use: Yes Do you think of yourself as: straight/heterosexual Assistive Devices: Glasses, Hearing Aid - Bilateral and Walker Assistive Devices Comment: glasses for reading Review of Systems Review of Systems: All systems reviewed & are unremarkable except as noted in HPI & below Physical Exam Physical Exam: General: WD/WN elderly male sitting up in bed drinking water, NAD, son at bedside HEENT: head normocephalic, atraumatic, mmm, trachea midline Resp: CTA, no w/c/r, on 2L post op, no tachypnea CV: paced (rates 60s), no significant m/r/g, no pitting edema/calf tenderness GI: +BS, soft/NT MSK/Neuro: dressing lumbar spine c/d/i, strength testing LE intact (slightly reduced RLE chronic from prior CVA but almost undetectable on exam), NVI, pulses palpable Psych: AOx3, pleasant and cooperative Results & Data Results & Data Vital Signs (Past 12 Hours) Vital Signs Temp Pulse Resp BP Pulse Ox O2 Del Method O2 Flow Rate 08/25/22 12:42 36.2 C L 60 18 154/82 H 99 Nasal Cannula 3 08/25/22 12:15 36.3 C L 64 18 161/84 H 99 Nasal Cannula 3 08/25/22 11:50 60 12 161/88 H 98 Nasal Cannula 2 08/25/22 11:40 36.4 C L 60 12 170/91 H 96 Nasal Cannula 2 08/25/22 11:30 60 12 170/89 H 97 Room Air 08/25/22 11:15 60 12 161/99 H 97 Room Air 08/25/22 11:05 60 12 164/93 H 100 Oxymask 4 08/25/22 10:55 60 12 159/86 H 100 Oxymask 6 08/25/22 10:45 36.0 C L 64 16 153/92 H 100 Oxymask 8 08/25/22 08:07 37.1 C 72 20 171/90 H 98 Room Air Laboratory Results 08/25/22 Range/Units 07:55 SARS-CoV-2, RNA, NAAT NEGATIVE (NEGATIVE) Diagnostic Findings Spine X-Ray 08/25/22 09:15 INTRAOPERATIVE RADIOGRAPHS CLINICAL HISTORY: L4-L5 spinal surgery. Fluoro time: 7 seconds Ka,r: 4.80 mGy FINDINGS: A single spot fluoroscopic image of the lumbar spine is presented. A surgical probe projects posterior to the superior endplate of the L5 vertebral body. IMPRESSION: Intraoperative image from lumbar spinal fusion surgery as above. Electronically signed by: Darci James M.D. 08/25/2022 1:12 PM PG Care Time/CCT Total # of Minutes Spent Total Time Spent with Patient: Total time spent is greater than 50% in coordination of care (as documented) at patient's floor/unit and/or counseling patient: Coding Level of Care Code 12678 IN/OBS CONSULT LVL 3,45M Diagnoses Neurogenic claudication due to lumbar spinal stenosis M48.062 Atrial fibrillation, persistent I48.19 Hypertension I10 Hypertension type: essential hypertension Cardiac pacemaker in situ Z95.0 History of stroke Z86.73 (3) Hypertension Hypertension type: essential hypertension Qualified Code(s): I10 - Essential (primary) hypertension
[2022-08-25] MEDS: ACETAMINOPHEN 500 MG TAB PO PRN (15:58)
[2022-08-25] MEDS: ceFAZolin 2000MG 2,000 MG/15 ML SYR IV SCH (17:21)
[2022-08-25] MEDS: DOCUSATE SODIUM/SENNA 50/8.6MG TAB PO SCH (20:29)
[2022-08-25] MEDS: ATORVASTATIN 10 MG TAB PO SCH (20:30)
[2022-08-25] MEDS: FINASTERIDE 5 MG TAB PO SCH (20:30)
[2022-08-26] MEDS: ceFAZolin 2000MG 2,000 MG/15 ML SYR IV SCH (00:41)
[2022-08-26] MEDS: POLYETHYLENE (MIRALAX) 17 GM PACK PO SCH ×4 (05:53→21:42)
[2022-08-26 07:13] LABS: Hematocrit (blood only) 42.6 % (42.0-52.0); Hemoglobin 14.7 g/dl (14.0-18.0); Mean Corpuscular Hemoglobin 32.5 pg (25.0-34.0); Mean Corpuscular Hgb Conc 34.5 g/dL (32.0-36.0); Mean Corpuscular Volume 94.2 fL (80.0-100.0); Mean Platelet Volume 11.2 fL (9.4-12.4); Platelet Count 133 K/uL (130-400); RDW Coefficient of Variation 13.4 % (11.5-14.5); RDW Standard Deviation 46.5 fL (36.4-46.3); Red Blood Count 4.52 M/uL (4.70-6.10); White Blood Count 10.87 K/ul (4.8-10.8)
[2022-08-26 07:20] LABS: Albumin Globulin Ratio 1.6 (0.9-2); Albumin Level 3.4 gm/dl (3.4-5.0); BUN Creatinine Ratio 18.3 (10-20); Bilirubin,Total 0.9 mg/dl (0.2-1.0); Calcium 8.5 mg/dl (8.6-10.3); Creatinine Clr Calc Pharmacy 56.1 ml/min; Est GFR (African American) 84.7 ml/min; Globulin 2.1 gm/dl (2.5-4.0); Magnesium 1.8 mg/dl (1.7-2.4); Total Protein 5.5 gm/dl (6.0-8.3)
[2022-08-26] MEDS: TAMSULOSIN HCL 0.4 MG CAP PO SCH (08:04)
[2022-08-26] MEDS: CEROVITE ADV FORMULA TAB PO SCH (08:04)
[2022-08-26] MEDS: dexAMETHasone 6 MG in SYRINGE 0 ML IV SCH (08:04)
[2022-08-26] MEDS: ACETAMINOPHEN 500 MG TAB PO PRN ×2 (08:04→21:37)
[2022-08-26] MEDS: amLODIPine BESYLATE 5 MG TAB PO SCH (08:04)
--- NOTE | 2022-08-26 08:43 | Hospitalist Progress Note ---
Date of Service August 26, 2022 Assessment & Plan (1) Neurogenic claudication due to lumbar spinal stenosis: Plan: POD# 1 s/p #1 lumbar decompression bilateral medial facetectomies and foraminotomies L3-L4 L4-L5 with Dr Gregg on 08/25. EBL 50cc WBC elevation 2nd to steroids, afebrile Hgb 17--> 14.7. JOSEPHINE output 265+80cc acute blood loss anemia from surgery as well as dilutional aspect from IVF post-op Pain control/bowel regimen/PT/OT per primary service DVT proph: SCDs, shabana hose Per discussion w/ Roberto Cisneros, ok to wait until AM to resume his pradaxa. Conveyed to Dr Gregg to order to start for the morning 08/27 as long as no acute issues/contraindications Patient would like to go to rehab ([facility]). CM to follow May need new rx for walker w/ seat per patient/family request D/c when stable from orthopedic standpoint (2) Atrial fibrillation, persistent: Plan: Follows locally w/ Dr Gates, seen by Roberto Cisneros prior to surgery. Also carries hx HTN, LVH, HLD, SSS s/p pacemaker w/ recent pacemaker check 08/13 Continues on amlodipine daily Pradaxa to resume when ok w/ surgery --> planning to restart AM 08/27. Messaged primary such Keep K~4, mag ~2 on AM labs will order 1gm IV mag to keep closer to 2 (3) Hypertension: Plan: BP stable 112/71 On amlodipine daily, continued of note, takes lasix 20mg prn edema (4) Cardiac pacemaker in situ: Plan: noted (5) History of stroke: Plan: hx of such, 2013 s/p TPA. residual R sided deficits, nothing new On pradaxa, held pre-op -- messaged primary to see about timing to resume SCDs/shabana hose to be utilized in the meantime Son/patient instructed to alert of any worrisome signs. Plan Thank you for allowing hospitalist service to participate in the care of Mr Goncalves. Hospitalist service will follow along in AM Please call with any questions/concerns. Admission and Anticipated Discharge Date Admission Date: August 25, 2022 Supervising Physician Co-Signing Physician Notes The patient was not seen by me. The chart was reviewed. Case discussed with ANNE Gunderson. Agree with assessment and plan Subjective Patient evaluated this morning around lunch, family at bedside. Doing well. Pain controlled Urinating. Passing some gas but no BM yet. No abdominal pain. No fever/chills,chest pain, shortness of breath reported. Did two laps in the [place] this morning. Would like to go to rehab.Will touch base w/ CM. He also would prefer his 3 wheeled walker vs walker w/ seat. Also discussed pradaxa to resume tomorrow per discussion w/ Dr Gregg. Physical Exam Physical Exam: General: WD/WN elderly male sitting up in recliner, family at bedside, NAD HEENT: head normocephalic, atraumatic, mmm, trachea midline Resp: CTA, no w/c/r, on room air CV: paced in the 60s, no significant m/r/g, no calf tenderness GI: +BS, slight distension, nontender : no gonzalez, voiding spontaneously MSK/Neuro: dressing lumbar spine c/d/i, strength testing LE intact (slightly reduced RLE chronic from prior CVA but almost undetectable on exam), NVI, pulses palpable Psych:AOx3, pleasant and cooperative Results & Data Results & Data Vital Signs (Past 12 Hours) Vital Signs Temp Pulse Pulse Resp BP BP Pulse Ox 08/26/22 07:09 36.3 C L 75 18 161/90 H 98 08/26/22 05:55 36.9 C 66 18 162/85 H 97 08/26/22 03:45 36.7 C 71 15 159/92 H 96 08/25/22 23:43 36.6 C 57 L 16 143/81 H 96 O2 Del Method 08/26/22 07:09 Room Air 08/26/22 05:55 Room Air 08/26/22 03:45 Room Air 08/25/22 23:43 Room Air Laboratory Results 08/26/22 08/26/22 Range/Units 06:20 06:20 WBC 10.87 H (4.8-10.8) K/ul RBC 4.52 L (4.70-6.10) M/uL Hgb 14.7 (14.0-18.0) g/dl Hct 42.6 (42.0-52.0) % MCV 94.2 (80.0-100.0) fL MCH 32.5 (25.0-34.0) pg MCHC 34.5 (32.0-36.0) g/dL RDW Std Deviation 46.5 H (36.4-46.3) fL RDW Coeff of Candice 13.4 (11.5-14.5) % Plt Count 133 (130-400) K/uL MPV 11.2 (9.4-12.4) fL Sodium 139 (136-145) mmol/L Potassium 4.0 (3.5-5.1) mmol/L Chloride 108 H (98-107) mmol/L Carbon Dioxide 24 (21-32) mmol/L Anion Gap 7 (3-11) BUN 17 (6-23) mg/dl Creatinine 0.93 (0.6-1.4) mg/dl Est Cr Clr Drug Dosing 56.1 ml/min Est GFR ( Amer) 84.7 ml/min Est GFR (Non-Af Amer) 73.0 ml/min BUN/Creatinine Ratio 18.3 (10-20) Glucose 122 H (70-99(Fasting)) mg/dl Calcium 8.5 L (8.6-10.3) mg/dl Magnesium 1.8 (1.7-2.4) mg/dl Total Bilirubin 0.9 (0.2-1.0) mg/dl AST 17 (13-39) U/L ALT 9 (7-52) U/L Alkaline Phosphatase 52 (34-104) U/L Total Protein 5.5 L (6.0-8.3) gm/dl Albumin 3.4 (3.4-5.0) gm/dl Globulin 2.1 L (2.5-4.0) gm/dl Albumin/Globulin Ratio 1.6 (0.9-2) Diagnostic Findings Spine X-Ray 08/25/22 09:15 INTRAOPERATIVE RADIOGRAPHS CLINICAL HISTORY: L4-L5 spinal surgery. Fluoro time: 7 seconds Ka,r: 4.80 mGy FINDINGS: A single spot fluoroscopic image of the lumbar spine is presented. A surgical probe projects posterior to the superior endplate of the L5 vertebral body. IMPRESSION: Intraoperative image from lumbar spinal fusion surgery as above. Electronically signed by: Darci James M.D. 08/25/2022 1:12 PM PG Care Time/CCT Total # of Minutes Spent Total Time Spent with Patient: Total time spent is greater than 50% in coordination of care (as documented) at patient's floor/unit and/or counseling patient: Coding Level of Care Code 28651 SUB INP/OBS CARE 2/35MIN Diagnoses Neurogenic claudication due to lumbar spinal stenosis M48.062 Atrial fibrillation, persistent I48.19 Hypertension I10 Hypertension type: essential hypertension Cardiac pacemaker in situ Z95.0 History of stroke Z86.73 (3) Hypertension Hypertension type: essential hypertension Qualified Code(s): I10 - Essential (primary) hypertension
[2022-08-26] MEDS ORDERED: POTASSIUM CHLORIDE 10 MEQ TABCR PO PRN (09:00)
[2022-08-26] MEDS ORDERED: MAGNESIUM SULFATE / D5W 1 GM/100 ML BAG IV ONE (12:00)
--- NOTE | 2022-08-26 12:19 | Orthopedic Progress Note ---
Date of Service August 26, 2022 Assessment & Plan (1) Neurogenic claudication due to lumbar spinal stenosis: Plan: At this time we will continue physical therapy monitor his JOSEPHINE output hopefully ready for rehab tomorrow. Admission and Anticipated Discharge Date Admission Date: August 25, 2022 Subjective Back pain controlled leg pain improved Physical Exam Physical Exam: Patient is in the chair at the bedside. Is good strength testing. Results & Data Vital Signs (Past 12 Hours) Vital Signs Temp Pulse Pulse Resp BP BP Pulse Ox 08/26/22 11:13 37.0 C 61 16 112/71 97 08/26/22 08:20 08/26/22 07:09 36.3 C L 75 18 161/90 H 98 08/26/22 05:55 36.9 C 66 18 162/85 H 97 08/26/22 03:45 36.7 C 71 15 159/92 H 96 O2 Del Method 08/26/22 11:13 Room Air 08/26/22 08:20 Room Air 08/26/22 07:09 Room Air 08/26/22 05:55 Room Air 08/26/22 03:45 Room Air
[2022-08-26] MEDS: DOCUSATE SODIUM/SENNA 50/8.6MG TAB PO SCH (19:37)
[2022-08-26] MEDS: FINASTERIDE 5 MG TAB PO SCH (21:37)
[2022-08-26] MEDS: ATORVASTATIN 10 MG TAB PO SCH (21:37)
[2022-08-27] MEDS: POLYETHYLENE (MIRALAX) 17 GM PACK PO SCH ×2 (05:40→11:42)
[2022-08-27] MEDS: CEROVITE ADV FORMULA TAB PO SCH (08:33)
[2022-08-27] MEDS: dexAMETHasone 6 MG in SYRINGE 0 ML IV SCH (08:34)
[2022-08-27] MEDS: TAMSULOSIN HCL 0.4 MG CAP PO SCH (08:34)
[2022-08-27] MEDS: amLODIPine BESYLATE 5 MG TAB PO SCH (08:34)
[2022-08-27] MEDS ORDERED: DABIGATRAN ETEXILATE 75 MG CAP PO SCH ×2 (09:00→21:00)
--- NOTE | 2022-08-27 10:19 | Discharge Summary ---
Date of Service August 27, 2022 Admission HPI Per Admitting Provider This is an 87-year-old male presents with chronic persistent back and leg pain after failing course of nonoperative care is here for surgical invention. Principal Diagnosis Lumbar spinal stenosis with neurogenic claudication Discharge Data Allergies Allergy/AdvReac Type Severity Reaction Status Date / Time diazepam Allergy Unknown per PCP Verified 08/25/22 08:10 note Consultations 08/25/22 12:17 Consult Hospitalist Routine Procedures Performed Operation Date: 08/25/22 09:15 Actual Procedures p L4-L5 Decompression, Spinal Cord Monitoring(Not Applicable) - Malcom Gregg DO Ordered Studies 08/25/22 09:15 FL spine 1V any level Routine Hospital Course (1) Neurogenic claudication due to lumbar spinal stenosis: Patient underwent lumbar decompression trial as well as taken orthopedic for postoperative. Postop day 1 is up and ambulating tolerating physical therapy progressed to postop day #2. JOSEPHINE drain decreasing appropriately. Subsequently discharged to rehab. Discharge orders instructions found in chart for further review. Total Time Total Time Spent Total Time Spent (In Minutes): 20 minutes Discharge Plan Discharge Items Patient Disposition: Transfer Inpatient Rehab Fac Reason For Visit: Spinal Stenosis, Lumbar Region with Neurogenic Cla Discharge Diagnosis: Lumbar spinal stenosis with neurogenic claudication Activity: As commented below Non-emergency contact: Primary Care Provider Call non-emergency contact if: you have any medication questions Follow-up/Referrals: Shawn Gilbert MD [Primary Care Provider] - Diet: Regular Addtl Attending Provider Instructions: ACTIVITY RECOMMENDATIONS: SELF CARE INSTRUCTIONS AFTER A LAMINECTOMY 1. No prolonged sitting (less than 30 minutes for the first 3 weeks after surgery). 2. No bending, lifting more than 5 pounds, or twisting (roll like a log when turning in bed). 3. You may shower 3 days after surgery if no drainage from wound. Thoroughly dry wound. Do not soak in the tub. 4. Please walk as much as you can for exercise. Gradually increase the distance that you walk as your endurance increases. 5. You may drive in 7-10 days if you are comfortable and no longer requiring pain medications. SPECIAL CARE INSTRUCTIONS: VERY IMPORTANT TO READ AND REVIEW A. Your surgical incision has been closed with a cosmetic suture under the skin that will dissolve in about 6 weeks. In 14 days, you can use a pair of clean scissors and cut the suture that is left outside of the skin at the ends of your incision. B. Complications are uncommon, but please contact us if you have any signs or symptoms of: 1. wound infection (fever higher than 102.5 degrees F, redness, separation of wound, drainage, or increasing pain from the incision) 2. blood clots in legs (pain, swelling, redness and warmth in legs) 3. urinary tract infection (fever higher than 102.5 degrees, burning upon urination or increased frequency of urination) 4. nerve problems (inability to walk on your toes or heels, numbness, loss of bowel or bladder control) 5. any other symptoms that concern you. C. Please call the office at if you have any concerns or questions about your operation or recovery. MANAGING PAIN AFTER SPINAL SURGERY 1. Narcotic medication is intended for short-term use and will be provided for surgical pain. Surgical pain usually lasts for a period of 4-6 weeks. Narcotic medication includes Percocet, Vicodin, Darvocet, Tylenol #3 or Lortab. 2. Longer-term pain is more appropriately treated with non-narcotic medication such as Tylenol ES. 3. Muscle spasm is not appropriately treated with narcotics. Muscle relaxers such as Soma, Flexeril or Skelaxin can be used along with Tylenol ES. 4. Remember that we all live with some "aches and pains". This is not unusual or uncommon after an injury or as we get older. 5. We will provide appropriate medication within the normal guidelines of their prescribed use. We will also be very cautious and aware of potential abuse and extended duration of patients' medication needs. 6. Please allow 2-3 days to process refills. Prescriptions will not be mailed but must be picked up at the office. FOLLOW UP VISIT: Keep your scheduled follow-up appointment. Any questions, please call the office at . Pending Studies at Discharge: No Stand-Alone Forms: [facility] Skilled Items Patient informed of condition?: Yes DNR: No Discharge Level of Care: Acute rehab Communicable Disease: No Discharge Prognosis: Improving Lines: None Urinary Catheter: No Medications and DC Order Prescriptions: New tramadol 50 mg tablet 50 mg PO Q6H PRN (Reason: pain, moderate) Qty: 30 0RF oxycodone 5 mg tablet 5 mg PO DAILY PRN (Reason: pain) Qty: 20 0RF Continued atorvastatin 10 mg tablet 10 mg PO QPM Qty: 90 2RF potassium chloride 10 mEq tablet extended release 10 meq PO .COMPLEX Qty: 30 5RF Rx Instructions: 10 mEq orally daily on days when furosemide is taken Pradaxa 150 mg capsule 150 mg PO BID Qty: 180 3RF multivitamin [Multiple Vitamins] tablet 1 tab PO QAM acetaminophen [Arthritis Pain Relief (acetam)] 650 mg tablet extended release 650 mg PO Q12H PRN (Reason: Pain) omega-3 fatty acids 1,000 mg capsule 1,000 mg PO QPM finasteride 5 mg tablet 5 mg PO QPM Qty: 90 3RF sildenafil (pulm.hypertension) 20 mg tablet 20 mg PO DAILY PRN (Reason: Sexual Activity) turmeric 400 mg Capsule 400 mg PO QAM amlodipine 2.5 mg tablet 2.5 mg PO QAM Rx Instructions: TAKE 1 TABLET BY MOUTH EVERY DAY IN THE MORNING tamsulosin 0.4 mg capsule 0.4 mg PO QAM furosemide 20 mg tablet 20 mg PO DAILY PRN (Reason: Edema) Rx Instructions: 20 mg orally daily as needed for edema; Discharge Orders: Discharge Order (Routine); Ordered 08/27/22 Ordered By: Malcom Gregg Admission Data Admit Date/Time: 08/25/22 10:32 Attending Provider: Malcom Gregg Admit Provider: Malcom Gregg Primary Care Provider: Shawn Gilbert Other Providers: Kemal Kaur ; Gerardo Oakes ; [facility]
--- NOTE | 2022-08-27 11:35 | Communication Note ---
Date of Service: August 27, [address] Gregg. Resuming Pradaxa for this evening. Per nursing, patient doing well/no complaints at present. [facility] per primary service -- Planning for [facility] today when transportation in place. Please call with any questions/concerns.
== END 2022-08-27 13:24 | DRG 516 ==
LOC: ASU 07:31 → 3E 10:32

== ENCOUNTER 2022-10-22 12:53 | Observation (INO) ==
[2022-10-22] MEDS: SODIUM CHLORIDE 0.9% 1000ML 1,000 ML IV SCH ×2 (13:33→23:07)
[2022-10-22 14:01] LABS: Appearance Urine Cloudy (Clear); Bacteria Urine Automated 2+ (Negative); Bilirubin Urine Negative (Negative); Blood Urine Negative (Negative); Color Urine Yellow; Glucose Urine UA Negative (Negative); Ketones Urine Negative (Negative); Leukocyte Esterase Urine 3+ (Negative); Nitrite Urine Negative (Negative); Protein Urine Negative (Negative); RBC Urine Automated 0-4 /hpf (0-4); Specific Gravity Urine 1.012 (1.000-1.030); Urobilinogen Urine Negative (Negative); WBC Urine Automated >30 /hpf (0-5); pH Urine 7.5 (4.5-7.5)
--- NOTE | 2022-10-22 14:23 | Emergency Department Note ---
Impression & Plan Acute right hip pain, Fall, Closed rib fracture, Acute UTI (urinary tract infection) ED Provider Note ED Provider Note NAME: NICOLE MCCOLLUM AGE:87 SEX: Male : 1935 ARRIVES VIA: EMS INFORMANT: Patient ED PROVIDER(s): Naima Jalloh DO CHIEF COMPLAINT: Fall, right hip pain HPI: This is an 87-year-old male who presents to the emergency department following a fall at home. Patient states he was trying to pull up his trousers following urination and was leaning on his 3 wheeled walker when it began to sl adri away from him and he fell over. He states he fell onto his right side. He states he did not strike his head or lose consciousness. Patient is anticoagulated. He states he was able to stand with assistance from EMS although had pain he had at the right hip. He denies any numbness and tingling in that leg. He denies any other concern for pain or injury. PAST MEDICAL HISTORY:See Below PAST SURGICAL HISTORY:See Below FAMILY HISTORY:See Below SOCIAL HISTORY:See Below HOME MEDICATIONS:See Below ALLERGIES:See Below VITALS:See Below PHYSICAL EXAMINATION: GENERAL: alert, well appearing, well nourished, no distress, non-toxic HEAD: nc/at, no padilla signs, no raccoon eyes EYE EXAM: normal conjunctiva, PERRL and EOM's grossly intact OROPHARYNX: no exudate, no erythema, lips, buccal mucosa, and tongue normal and mucous membranes are moist NECK: supple, no nuchal rigidity, no adenopathy, non-tender LUNGS: Clear to auscultation. Normal chest wall mechanics, no w/r/r HEART: no murmurs, S1 normal and S2 normal CHEST WALL: Nontender with palpation, no crepitus, no step-off, no evidence of ecchymosis ABDOMEN: abdomen soft, non-tender, normo-active bowel sounds, no masses, no rebound or guarding. PELVIS: Stable to compression, nontender with palpation BACK: Back is symmetrical on inspection and there is no deformity, no midline tenderness, no CVA tenderness. SKIN: no rashes, petechiae, orbruising UPPER EXTREMITIES: upper extremities are grossly normal. FROM, nml pulses b/l. LOWER EXTREMITIES: No pitting edema. FROM, nml pulses b/l. No obvious trauma o r deformity, no pain with palpation over the right hip. No joint effusions, compartments soft. No malrotation or shortening noted. NEURO EXAM: Normal sensorium, cranial nerves II-XII grossly intact, normal speech, no facial droop,nogross weakness of arms, no gross weakness of legs. Gross sensation intact. No ataxia. Vital Signs: reviewed and remarkable Differential Diagnosis: Occult fracture, contusion, dislocation, periprosthetic fracture, musculoskeletal sprain, strain, hematoma, syncope, as well as others were considered MEDICAL DECISION MAKING: This is an 87-year-old male presents emergency department following an accidental fall at home. Patient afebrile and vital signs stable. Labs drawn and sent, IV established, EKG and x-rays performed at bedside and interpreted by me. Patient sent for additional CT imaging. Patient found to have [address], no other evidence of acute intra-abdominal or pelvic injury. Patient's other calming x-rays were reassuring however patient still felt un steady with ambulatory trial and had persistent right hip pain. We did attempt to try and get patient into inpatient rehab however this was not an option given the time of day. As patient did not feel comfortable going home as he did not feel steady on his feet even with his usual walker, the case was discussed with the hospitalist for additional evaluation and treatment. I do not suspect any a dditional occult traumatic injury at this time. Patient had no complaints of feeling short of breath and was never hypoxic. Patient's UA suggestive of possible infection additionally, patient was given IV Rocephin and culture sent. Consultation(s): 2009: Discussed with Dr. Fink. We did attempt to refer patient for inpatient rehab and [facility] can no longer take referrals or have on-call staff to speak with after 0. Patient did attempt to walk here and felt unsteady because of pain in the right hip. He did not complain of any rib pain or difficulty breathing. Patient was concern for repeat fall given the pain at the right hip and felt unsafe going home. ER Treatment Provided: See below Diagnostics Interpreted By Me: -ECG: Ventricular paced at 60, leftward axis, prolonged QRS and QTc, nonspecific ST/T wave change -Cardiac Monitoring: An order was placed for continuous cardiac monitoring. The monitor shows a rate of 68 with paced rhythm. -Laboratory studies: As stated above and show below. -Imaging studies: xr pelvis/right hip: Hardware noted, no obvious fracture Triage Nursing Note Reviewed Prior/Outside Records Reviewed Past Med/Surg History Medical History Afib follows with Dr. Gates BPH (benign prostatic hyperplasia) Chronic constipation Chronic prostatitis Depression Difficulty with insertion of urinary catheter Dyslipidemia Hearing deficit [facility] History of COVID-19 2021 > no hospitalized> symptoms resolved History of stroke 2012. RUE/RLE weakness. 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 SSS. battery changed 2022. medtronic. checked within last 2 mo. Family History Brother Alzheimer disease Deafness Mother Hypertension Other Family history non-contributory Denies family history of Ovarian cancer Prostate cancer Myocardial infarction Breast cancer Colorectal cancer Social History Smoking Status: Never smoker Second Hand Exposure: No; Do You Dip or Chew Tobacco: No; Hx Alcohol Use: Yes Alcohol type: wine Alcohol Intake Frequency: 2-4 x/Month Hx Substance Use: No Preferred Language: Chadian Communication Ability: Effective Visual Impairment: Limited Hearing Ability: Use of Hearing Aid Superintendent General Required: No Beliefs That Will Affect Care: None marital status: / Current Living Situation: Alone current occupational status: retired 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, 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 Feels Safe at Home: Yes Safety Concerns: Feels Safe At This Time Childhood Exposure to Second-Hand Smoke: Yes Diet: regular caffeine: Yes Dental Care, Regularly: Yes Physical Activity Frequency: Does not Exercise Seatbelt Use: always Sunscreen Use: No Do you think of yourself as: straight/heterosexual Assistive Devices: Glasses, Hearing Aid - Bilateral and Walker Allergies Allergies Allergy/AdvReac Type Severity Reaction Status Date / Time diazepam Allergy Unknown per PCP Verified 10/22/22 16:02 note Home Meds Home Medications Medication Instructions Recorded Confirmed multivitamin (Multiple Vitamins 1 tab PO QAM 11/17/18 10/22/22 tablet) acetaminophen 650 mg 650 mg PO DIRECTED PRN Pain 08/07/20 10/22/22 tablet,extended release (Arthritis Pain Relief (acetaminophen) ER) amlodipine 2.5 mg tablet 2.5 mg PO QAM 08/04/22 10/22/22 furosemide 20 mg tablet 20 mg PO DAILY PRN Edema 08/04/22 10/22/22 tamsulosin 0.4 mg capsule 0.4 mg PO QAM 08/04/22 10/22/22 turmeric 400 mg capsule 400 mg PO QAM 08/04/22 10/22/22 atorvastatin 10 mg tablet 10 mg PO HS 10/22/22 10/22/22 cholecalciferol (vitamin D3) 50 50 mcg PO DAILY 10/22/22 10/22/22 mcg (2,000 unit) capsule (Vitamin D3) finasteride 5 mg tablet 5 mg PO HS 10/22/22 10/22/22 potassium chloride 10 mEq 10 meq PO DIRECTED PRN TAKE 10/22/22 10/22/22 tablet,extended release WHEN USES LASIX Previous Rx's Medication Instructions Recorded dabigatran etexilate 150 mg 150 mg PO BID #180 caps 08/09/22 capsule (Pradaxa) Results & Data (ED) Vital Signs Vital Signs - 24 hr 10/22/22 12:58 10/22/22 13:47 10/22/22 14:00 Temperature 36.5 C Temperature Source Oral Pulse Rate 88 65 60 Pulse Rate [Exercises] Pulse Rate from SpO2 Sensor 60 Pulse Rhythm Regular Pulse Strength Normal Respiratory Rate 20 19 Respiratory Rate [Exercises] Respiratory Effort / Characteristics Non-Labored Spontaneous Respiratory Depth Normal Respiratory Pattern Regular Blood Pressure 198/118 H 145/93 H Blood Pressure Mean 144 110 Blood Pressure Position Sitting Pulse Oximetry 97 96 Pulse Oximetry [Exercises] Oxygen Delivery Method Room Air Sepsis Recent Fever Within 48 Hours No Sepsis New/Unexplained Change in Mental Status No Sepsis Action Taken by Nursing No Action Required 10/22/22 14:30 10/22/22 17:27 10/22/22 15:00 Temperature Temperature Source Pulse Rate 61 69 68 Pulse Rate [Exercises] Pulse Rate from SpO2 Sensor 61 69 Pulse Rhythm Pulse Strength Respiratory Rate 8 L 15 Respiratory Rate [Exercises] Respiratory Effort / Characteristics Respiratory Depth Respiratory Pattern Blood Pressure 153/106 H Blood Pressure Mean 121 Blood Pressure Position Pulse Oximetry 96 97 Pulse Oximetry [Exercises] Oxygen Delivery Method Sepsis Recent Fever Within 48 Hours Sepsis New/Unexplained Change in Mental Status Sepsis Action Taken by Nursing 10/22/22 15:10 10/22/22 15:20 10/22/22 15:30 Temperature Temperature Source Pulse Rate 63 86 Pulse Rate [Exercises] Pulse Rate from SpO2 Sensor 64 81 Pulse Rhythm Pulse Strength Respiratory Rate 17 13 Respiratory Rate [Exercises] Respiratory Effort / Characteristics Respiratory Depth Respiratory Pattern Blood Pressure 153/104 H Blood Pressure Mean 122 Blood Pressure Position Pulse Oximetry 96 96 Pulse Oximetry [Exercises] Oxygen Delivery Method Sepsis Recent Fever Within 48 Hours Sepsis New/Unexplained Change in Mental Status Sepsis Action Taken by Nursing 10/22/22 15:30 10/22/22 15:40 10/22/22 15:50 Temperature Temperature Source Pulse Rate 70 65 66 Pulse Rate [Exercises] Pulse Rate from SpO2 Sensor 74 65 65 Pulse Rhythm Pulse Strength Respiratory Rate 11 L 12 10 L Respiratory Rate [Exercises] Respiratory Effort / Characteristics Respiratory Depth Respiratory Pattern Blood Pressure Blood Pressure Mean Blood Pressure Position Pulse Oximetry 98 97 97 Pulse Oximetry [Exercises] Oxygen Delivery Method Sepsis Recent Fever Within 48 Hours Sepsis New/Unexplained Change in Mental Status Sepsis Action Taken by Nursing 10/22/22 16:00 10/22/22 16:00 10/22/22 17:07 Temperature Temperature Source Pulse Rate 65 72 Pulse Rate [Exercises] Pulse Rate from SpO2 Sensor 63 Pulse Rhythm Pulse Strength Respiratory Rate 12 14 Respiratory Rate [Exercises] Respiratory Effort / Characteristics Respiratory Depth Respiratory Pattern Blood Pressure 163/122 H Blood Pressure Mean 142 Blood Pressure Position Pulse Oximetry 98 Pulse Oximetry [Exercises] Oxygen Delivery Method Sepsis Recent Fever Within 48 Hours Sepsis New/Unexplained Change in Mental Status Sepsis Action Taken by Nursing 10/22/22 17:08 10/22/22 17:08 10/22/22 17:10 Temperature Temperature Source Pulse Rate 72 76 Pulse Rate [Exercises] Pulse Rate from SpO2 Sensor 61 75 Pulse Rhythm Pulse Strength Respiratory Rate 19 16 Respiratory Rate [Exercises] Respiratory Effort / Characteristics Respiratory Depth Respiratory Pattern Blood Pressure 182/98 H Blood Pressure Mean 115 Blood Pressure Position Pulse Oximetry 98 96 Pulse Oximetry [Exercises] Oxygen Delivery Method Sepsis Recent Fever Within 48 Hours Sepsis New/Unexplained Change in Mental Status Sepsis Action Taken by Nursing 10/22/22 17:20 10/22/22 17:30 10/22/22 17:30 Temperature Temperature Source Pulse Rate 76 70 Pulse Rate [Exercises] Pulse Rate from SpO2 Sensor 66 66 Pulse Rhythm Pulse Strength Respiratory Rate 11 L 11 L Respiratory Rate [Exercises] Respiratory Effort / Characteristics Respiratory Depth Respiratory Pattern Blood Pressure 149/84 H Blood Pressure Mean 120 Blood Pressure Position Pulse Oximetry 96 96 Pulse Oximetry [Exercises] Oxygen Delivery Method Sepsis Recent Fever Within 48 Hours Sepsis New/Unexplained Change in Mental Status Sepsis Action Taken by Nursing 10/22/22 17:40 10/22/22 17:50 10/22/22 18:00 Temperature Temperature Source Pulse Rate 64 71 Pulse Rate [Exercises] Pulse Rate from SpO2 Sensor 63 72 Pulse Rhythm Pulse Strength Respiratory Rate 15 13 Respiratory Rate [Exercises] Respiratory Effort / Characteristics Respiratory Depth Respiratory Pattern Blood Pressure 151/83 H Blood Pressure Mean 115 Blood Pressure Position Pulse Oximetry 96 97 Pulse Oximetry [Exercises] Oxygen Delivery Method Sepsis Recent Fever Within 48 Hours Sepsis New/Unexplained Change in Mental Status Sepsis Action Taken by Nursing 10/22/22 18:00 10/22/22 19:00 Temperature Temperature Source Pulse Rate 66 Pulse Rate [Exercises] 84 Pulse Rate from SpO2 Sensor 65 Pulse Rhythm Pulse Strength Respiratory Rate 16 Respiratory Rate [Exercises] 18 Respiratory Effort / Characteristics Respiratory Depth Respiratory Pattern Blood Pressure Blood Pressure Mean Blood Pressure Position Pulse Oximetry 96 Pulse Oximetry [Exercises] 94 Oxygen Delivery Method Room Air Sepsis Recent Fever Within 48 Hours Sepsis New/Unexplained Change in Mental Status Sepsis Action Taken by Nursing Laboratory Data 10/22/22 15:04 10/22/22 15:04 Lab Results 10/22/22 10/22/22 10/22/22 Range/Units 12:59 15:04 15:04 WBC 6.84 (4.8-10.8) K/ul RBC 5.14 (4.70-6.10) M/uL Hgb 16.5 (14.0-18.0) g/dl Hct 49.4 (42.0-52.0) % MCV 96.1 (80.0-100.0) fL MCH 32.1 (25.0-34.0) pg MCHC 33.4 (32.0-36.0) g/dL RDW Std Deviation 46.9 H (36.4-46.3) fL RDW Coeff of Candice 13.2 (11.5-14.5) % Plt Count 132 (130-400) K/uL MPV 11.3 (9.4-12.4) fL Immature Gran % (Auto) 0.3 % Neut % (Auto) 67.7 % Lymph % (Auto) 21.3 % [place] % (Auto) 9.1 % Eos % (Auto) 1.2 % Baso % (Auto) 0.4 % Neut # (Auto) 4.63 (1.40-6.50) K/uL Lymph # (Auto) 1.46 (1.2-3.4) K/uL [place] # (Auto) 0.62 H (0.11-0.59) K/uL Eos # (Auto) 0.08 (0-0.50) K/uL Baso # (Auto) 0.03 (0-0.2) K/uL Immature Gran # (Auto) 0.02 (0.01-0.20) K/uL PT 14.3 H (9.0-12.0) Seconds INR 1.3 H (0.9-1.1) Sodium (136-145) mmol/L Potassium (3.5-5.1) mmol/L Chloride (98-107) mmol/L Carbon Dioxide (21-32) mmol/L Anion Gap (3-11) BUN (6-23) mg/dl Creatinine (0.6-1.4) mg/dl Est Cr Clr Drug Dosing Est GFR ( Amer) ml/min Est GFR (Non-Af Amer) ml/min BUN/Creatinine Ratio (10-20) Glucose (70-99(Fasting)) mg/dl Calcium (8.6-10.3) mg/dl Magnesium (1.7-2.4) mg/dl Total Bilirubin (0.2-1.0) mg/dl AST (13-39) U/L ALT (7-52) U/L Alkaline Phosphatase (34-104) U/L Troponin I High Sens (0-20) pg/ml Total Protein (6.0-8.3) gm/dl Albumin (3.4-5.0) gm/dl Globulin (2.5-4.0) gm/dl Albumin/Globulin Ratio (0.9-2) TSH (0.300-4.500) uIu/ml Urine Color Yellow Urine Appearance Cloudy A (Clear) Urine pH 7.5 (4.5-7.5) Ur Specific [place] 1.012 (1.000-1.030) Urine Protein Negative (Negative) Urine Glucose (UA) Negative (Negative) Urine Ketones Negative (Negative) Urine Blood Negative (Negative) Urine Nitrite Negative (Negative) Urine Bilirubin Negative (Negative) Urine Urobilinogen Negative (Negative) Ur Leukocyte Esterase 3+ H (Negative) Urine WBC (Auto) >30 H (0-5) /hpf Urine RBC (Auto) 0-4 (0-4) /hpf U Hyaline Cast (Auto) 0 (0-5) /lpf U Epithel Cells (Auto) 10-20 H (0-5) /lpf Urine Bacteria (Auto) 2+ H (Negative) SARS-CoV-2 (PCR) (Negative) Influenza Type A (PCR) (Neg) Influenza Type B (PCR) (Neg) RSV (RT-PCR) (Neg) 10/22/22 10/22/22 10/22/22 Range/Units 15:04 15:04 20:37 WBC (4.8-10.8) K/ul RBC (4.70-6.10) M/uL Hgb (14.0-18.0) g/dl Hct (42.0-52.0) % MCV (80.0-100.0) fL MCH (25.0-34.0) pg MCHC (32.0-36.0) g/dL RDW Std Deviation (36.4-46.3) fL RDW Coeff of Candice (11.5-14.5) % Plt Count (130-400) K/uL MPV (9.4-12.4) fL Immature Gran % (Auto) % Neut % (Auto) % Lymph % (Auto) % [place] % (Auto) % Eos % (Auto) % Baso % (Auto) % Neut # (Auto) (1.40-6.50) K/uL Lymph # (Auto) (1.2-3.4) K/uL [place] # (Auto) (0.11-0.59) K/uL Eos # (Auto) (0-0.50) K/uL Baso # (Auto) (0-0.2) K/uL Immature Gran # (Auto) (0.01-0.20) K/uL PT (9.0-12.0) Seconds INR (0.9-1.1) Sodium 142 (136-145) mmol/L Potassium 4.3 (3.5-5.1) mmol/L Chloride 109 H (98-107) mmol/L Carbon Dioxide 27 (21-32) mmol/L Anion Gap 6 (3-11) BUN 19 (6-23) mg/dl Creatinine 0.93 (0.6-1.4) mg/dl Est Cr Clr Drug Dosing Not Reportable Est GFR ( Amer) 84.7 ml/min Est GFR (Non-Af Amer) 73.0 ml/min BUN/Creatinine Ratio 20.4 H (10-20) Glucose 103 H (70-99(Fasting)) mg/dl Calcium 9.6 (8.6-10.3) mg/dl Magnesium 2.2 (1.7-2.4) mg/dl Total Bilirubin 1.3 H (0.2-1.0) mg/dl AST 23 (13-39) U/L ALT 13 (7-52) U/L Alkaline Phosphatase 75 (34-104) U/L Troponin I High Sens 16.7 (0-20) pg/ml Total Protein 7.1 (6.0-8.3) gm/dl Albumin 4.2 (3.4-5.0) gm/dl Globulin 2.9 (2.5-4.0) gm/dl Albumin/Globulin Ratio 1.4 (0.9-2) TSH 0.910 (0.300-4.500) uIu/ml Urine Color Urine Appearance (Clear) Urine pH (4.5-7.5) Ur Specific [place] (1.000-1.030) Urine Protein (Negative) Urine Glucose (UA) (Negative) Urine Ketones (Negative) Urine Blood (Negative) Urine Nitrite (Negative) Urine Bilirubin (Negative) Urine Urobilinogen (Negative) Ur Leukocyte Esterase (Negative) Urine WBC (Auto) (0-5) /hpf Urine RBC (Auto) (0-4) /hpf U Hyaline Cast (Auto) (0-5) /lpf U Epithel Cells (Auto) (0-5) /lpf Urine Bacteria (Auto) (Negative) SARS-CoV-2 (PCR) NEGATIVE (Negative) Influenza Type A (PCR) Negative (Neg) Influenza Type B (PCR) Negative (Neg) RSV (RT-PCR) Negative (Neg) Administered Medications Acetaminophen (Acetaminophen 325 Mg Tab) 650 mg PO Q4H PRN PRN Reason: Pain Stop: 11/21/22 22:54 Last Admin: 10/23/22 20:41 Dose: 650 mg Documented By: Admin: 10/23/22 15:33 Dose: 650 mg Documented By: Admin: 10/23/22 05:36 Dose: 650 mg Documented By: MARGARET Amlodipine Besylate (Amlodipine Besylate 5 Mg Tab) 2.5 mg PO QAM NIKOLAS Stop: 11/22/22 08:59 Last Admin: 10/23/22 08:02 Dose: 2.5 mg Documented By: BALBIR Atorvastatin Calcium (Atorvastatin 10 Mg Tab) 10 mg PO HS NIKOLAS Stop: 11/22/22 20:59 Last Admin: 10/23/22 20:42 Dose: 10 mg Documented By: MARGARET Dabigatran (Dabigatran Etexilate 75 Mg Cap) 150 mg PO BID NIKOLAS Stop: 11/22/22 08:59 Last Admin: 10/23/22 20:42 Dose: 150 mg Documented By: Admin: 10/23/22 08:02 Dose: 150 mg Documented By: BALBIR Finasteride (Finasteride 5 Mg Tab) 5 mg PO HS NIKOLAS Stop: 11/22/22 20:59 Last Admin: 10/23/22 20:42 Dose: 5 mg Documented By: MARGARET Ceftriaxone Sodium 2,000 mg/ (Dextrose) 70 mls @ 140 mls/hr IV Q24H NIKOLAS Stop: 10/28/22 14:59 Last Infusion: 10/23/22 16:08 Dose: 0 mls/hr Documented By: Admin: 10/23/22 15:31 Dose: 140 mls/hr Documented By: BALBIR Tamsulosin HCl (Tamsulosin Hcl 0.4 Mg Cap) 0.4 mg PO QAM NIKOLAS Stop: 11/22/22 08:59 Last Admin: 10/23/22 08:02 Dose: 0.4 mg Documented By: AV Discontinued Medications Sodium Chloride (Nss 1000ml) 1,000 mls @ 125 mls/hr IV .Q8H NIKOLAS Stop: 11/21/22 13:14 Last Admin: 10/22/22 23:07 Dose: Not Given Documented By: Infusion: 10/22/22 23:07 Dose: 0 mls/hr Documented By: Admin: 10/22/22 13:33 Dose: 125 mls/hr Documented By: LEÓN Acetaminophen (Ofirmev) 1,000 mg in 100 mls @ 400 mls/hr IV NOW STA Stop: 10/22/22 18:31 Last Infusion: 10/22/22 19:15 Dose: 0 mls/hr Documented By: NUMERICAL CONTROL MACHINE TOOL OPERATOR Admin: 10/22/22 18:57 Dose: 400 mls/hr Documented By: NUMERICAL CONTROL MACHINE TOOL OPERATOR Ioversol (Optiray 320 100ml) 95 ml IV ONCE ONE Stop: 10/22/22 16:16 Last Admin: 10/22/22 16:16 Dose: 95 ml Documented By: EDK Imaging Data Radiologist's Impression: Abdomen/Pelvis CT 10/22/22 13:05 CT SCAN OF THE ABDOMEN AND PELVIS WITH IV CONTRAST CLINICAL HISTORY: Trauma. COMPARISON STUDY: Abdominal CT dated 05/27/2017 TECHNIQUE: Following the IV administration of 95 cc of Optiray 320, CT scan of the abdomen and pelvis is performed from the lung bases to the proximal femora. Images are reviewed in the axial, sagittal, and coronal planes. IV contrast was administered without complication. A dose lowering technique was utilized adhering to the principles of ALARA. FINDINGS: Lung bases: The heart is enlarged noting a small pericardial effusion. Pacemaker leads are in place. There is trace pneumothorax at the right lung base. No basilar pneumothorax is seen. There is bibasilar scarring/atelectasis. Scattered calcified granulomas are observed. Liver: The contrast-enhanced liver is normal in size, contour, and attenuation. There is no intrahepatic biliary ductal dilatation. The hepatic veins and portal veins are patent. Gallbladder: Unremarkable. Spleen: Normal in size and attenuation. Pancreas: The pancreas is atrophic. Parenchymal calcifications indicate chronic pancreatitis. There are numerous subcentimeter cystic foci scattered throughout the pancreas typical for sidebranch IPMNs. These measure up to 9 mm. Adrenal glands: Unremarkable. Kidneys: The contrast enhanced kidneys demonstrate cortical atrophy and are without hydronephrosis. The kidneys enhance symmetrically. Scattered renal cysts measure up to 2.4 cm. Abdominal vasculature: The abdominal aorta is normal in course and caliber noting advanced atherosclerotic calcification. Bowel: There is advanced colonic diverticulosis without CT evidence of acute diverticulitis. No bowel obstruction is seen. There is moderate colonic fecal retention. The appendix is well-visualized and normal. Peritoneum: There is no intraperitoneal free air or abdominal ascites. There is a fat-containing umbilical hernia. Lymphadenopathy: None. Pelvic viscera: Evaluation of the pelvis is degraded by streak artifact from a right hip arthroplasty. The prostate gland is markedly enlarged and heterogeneous. The bladder is distended, and the wall is thickened/trabeculated indicating chronic outlet obstruction. There are bilateral fat-containing inguinal hernias. Skeletal structures: The skeletal structures are osteopenic. There are acute r ight posterolateral 8th and 9th rib fractures. No lytic or blastic lesions are seen. A right hip arthroplasty is in place. Spondylotic and postsurgical change is noted in the lumbar spine. There is degenerative change in the sacroiliac joints with partial fusion on the right. Arthritic changes seen in the left hip. IMPRESSION: 1. There is no evidence of solid organ injury in the abdomen or pelvis. 2. There are acute right posterolateral 8th and 9th rib fractures. 3. Trace hemothorax is seen at the right lung base. 4. Advanced colonic diverticulosis without CT evidence of acute diverticulitis. 5. Significant bladder distention with prostatomegaly and evidence of chronic outlet obstruction. 6. Cardiomegaly. 7. Additional findings as above. ACT 112: Negative or not required by law. Electronically signed by: Darci James M.D. 10/22/2022 4:[address] 10/22/22 13:05 CT chest diagnostic w con CLINICAL HISTORY: trauma TECHNIQUE: Multidetector row helical CT of the chest was performed with intravenous contrast. Coronal and sagittal reformations were obtained. Automated dose lowering techniques and/or adjustment according to patient size were utilized for this exam. CT DOSE: 2596.78 mGy.cm Comparison: Comparison is made to CTA chest 09/11/2014 FINDINGS: Lungs and pleura: Pneumothorax and underlying atelectasis are seen in the right lower lung. There is a 5 mm nodule in the left lower lobe (series 6 image 103). Calcified granulomata are seen. Heart and pericardium: Heart size is normal. No pericardial effusion. Vessels: Moderate atherosclerotic changes in the aorta and coronary arteries. Pulmonary trunk measures 32 mm in diameter. Mediastinum and harry: Scattered partially calcified lymph nodes are seen. Chest wall and lower neck: Unremarkable. Abdomen: For findings below the diaphragm, please refer to CT of the abdomen dated the same. Bones: Flowing osteophytes are seen compatible with DISH. There are nondisplaced fractures of the right lateral eighth and ninth ribs. There are likely chronic fractures of additional bilateral ribs which were not seen on the prior exam. IMPRESSION: 1. Nondisplaced right rib fractures are seen with associated hemothorax but no evidence of pneumothorax. 2. Calcified pulmonary nodules and pulmonary granuloma may represent prior granulomatous disease. 3. Small pulmonary nodules above. According to Fleischner criteria, no follow- up is required in low risk patients, in high-risk patients, a 12 month follow-up CT can be optionally performed. ACT 112: Negative or not required by law. Electronically signed by: Keo Garcia M.D. 10/22/2022 4:33 PM Hip/Pelvis X-Ray 10/22/22 13:05 XR hip RT 2V w pelvis CLINICAL HISTORY: trauma TECHNIQUE: 2 views of the right hip and single frontal view of the pelvis were obtained. Comparison: Comparison is made to hip radiograph 06/06/2017 FINDINGS: There is no evidence of an acute fracture. There is a right hip total arthrop lasty without evidence of periprosthetic fracture. No soft tissue abnormality is seen. IMPRESSION: No evidence of acute osseous injury. ACT 112: Negative or not required by law. Electronically signed by: Keo Garcia M.D. 10/22/2022 5:10 PM Discharge Plan Visit Data Chief Complaint: Fall ED Provider: Naima Jalloh Discharge Problem: Acute right hip pain, Fall, Closed rib fracture, Acute UTI (urinary tract infection) Patient Disposition: Admitted As Inpatient Discharge Instructions Interventions: ED Discharge Assessment Last Done: 10/22/22 22:18
[2022-10-22 15:28] LABS: Basophils # (auto) 0.03 K/uL (0-0.2); Basophils % (auto) 0.4 %; Eosinophils # (auto) 0.08 K/uL (0-0.50); Eosinophils % (auto) 1.2 %; Hematocrit (blood only) 49.4 % (42.0-52.0); Hemoglobin 16.5 g/dl (14.0-18.0); Immature Granulocytes # (auto) 0.02 K/uL (0.01-0.20); Immature Granulocytes % (auto) 0.3 %; Lymphocytes # (auto) 1.46 K/uL (1.2-3.4); Lymphocytes % (auto) 21.3 %; Mean Corpuscular Hemoglobin 32.1 pg (25.0-34.0); Mean Corpuscular Hgb Conc 33.4 g/dL (32.0-36.0); Mean Corpuscular Volume 96.1 fL (80.0-100.0); Mean Platelet Volume 11.3 fL (9.4-12.4); Monocytes # (auto) 0.62 K/uL (0.11-0.59); Monocytes % (auto) 9.1 %; Neutrophils # (auto) 4.63 K/uL (1.40-6.50); Neutrophils % (auto) 67.7 %; Platelet Count 132 K/uL (130-400); RDW Coefficient of Variation 13.2 % (11.5-14.5); RDW Standard Deviation 46.9 fL (36.4-46.3); Red Blood Count 5.14 M/uL (4.70-6.10); White Blood Count 6.84 K/ul (4.8-10.8)
[2022-10-22 15:40] LABS: Alanine Aminotransferase 13 U/L (7-52); Albumin Globulin Ratio 1.4 (0.9-2); Albumin Level 4.2 gm/dl (3.4-5.0); Alkaline Phosphatase 75 U/L (34-104); Anion Gap 6 (3-11); Aspartate Aminotransferase 23 U/L (13-39); BUN Creatinine Ratio 20.4 (10-20); Bilirubin,Total 1.3 mg/dl (0.2-1.0); Blood Urea Nitrogen 19 mg/dl (6-23); Calcium 9.6 mg/dl (8.6-10.3); Carbon Dioxide 27 mmol/L (21-32); Chloride 109 mmol/L (98-107); Est GFR (African American) 84.7 ml/min; Globulin 2.9 gm/dl (2.5-4.0); Glucose 103 mg/dl (70-99(Fasting)); Magnesium 2.2 mg/dl (1.7-2.4); Potassium 4.3 mmol/L (3.5-5.1); Sodium 142 mmol/L (136-145); Total Protein 7.1 gm/dl (6.0-8.3)
[2022-10-22 15:47] LABS: Troponin I High Sensitivity 16.7 pg/ml (0-20)
[2022-10-22 15:54] LABS: INR 1.3 (0.9-1.1); Prothrombin Time 14.3 Seconds (9.0-12.0)
[2022-10-22 16:15] LABS: Cast Urine Automated 0 /lpf (0-5)
[2022-10-22] MEDS ORDERED: OPTIRAY 320 100ml IV ONE (16:15)
--- NOTE | 2022-10-22 16:35 | CT Scan Report ---
CT chest diagnostic w con CLINICAL HISTORY: trauma TECHNIQUE: Multidetector row helical CT of the chest was performed with intravenous contrast. Coronal and sagittal reformations were obtained. Automated dose lowering techniques and/or adjustment accord ing to patient size were utilized for this exam. CT DOSE: 2596.78 mGy.cm Comparison: Comparison is made to CTA chest 09/11/2014 FINDINGS: Lungs and pleura: Pneumothorax and underlying atelectasis are seen in the right lower lung. There is a 5 mm nodule in the left lower lobe (series 6 image 103). Calcified granulomata are seen. Heart and pericardium: Heart size is normal. No pericardial effusion. Vessels: Moderate atherosclerotic changes in the aorta and coronary arteries. Pulmonary trunk measure s 32 mm in diameter. Mediastinum and harry: Scattered partially calcified lymph nodes are seen. Chest wall and lower neck: Unremarkable. Abdomen: For findings below the diaphragm, please refer to CT of the abdomen dated the same. Bones: Flowing osteophytes are seen compatible with DISH. There are nondisplaced fractures of the rig ht lateral eighth and ninth ribs. There are likely chronic fractures of additional bilateral ribs whi ch were not seen on the prior exam. IMPRESSION: 1. Nondisplaced right rib fractures are seen with associated hemothorax but no evidence of pneumotho rax. 2. Calcified pulmonary nodules and pulmonary granuloma may represent prior granulomatous disease. 3. Small pulmonary nodules above. According to Fleischner criteria, no follow-up is required in low risk patients, in high-risk patients, a 12 month follow-up CT can be optionally performed. ACT 112: Negative or not required by law. Electronically signed by: Keo Garcia M.D. 10/22/2022 4:33 PM
--- NOTE | 2022-10-22 16:45 | CT Scan Report ---
CT SCAN OF THE ABDOMEN AND PELVIS WITH IV CONTRAST CLINICAL HISTORY: Trauma. COMPARISON STUDY: Abdominal CT dated 05/27/2017 TECHNIQUE: Following the IV administration of 95 cc of Optiray 320, CT scan of the abdomen and pelvi s is performed from the lung bases to the proximal femora. Images are reviewed in the axial, sagittal , and coronal planes. IV contrast was administered without complication. A dose lowering technique wa s utilized adhering to the principles of ALARA. FINDINGS: Lung bases: The heart is enlarged noting a small pericardial effusion. Pacemaker leads are in place. There is trace pneumothorax at the right lung base. No basilar pneumothorax is seen. There is bibasil ar scarring/atelectasis. Scattered calcified granulomas are observed. Liver: The contrast-enhanced liver is normal in size, contour, and attenuation. There is no intrahepa tic biliary ductal dilatation. The hepatic veins and portal veins are patent. Gallbladder: Unremarkable. Spleen: Normal in size and attenuation. Pancreas: The pancreas is atrophic. Parenchymal calcifications indicate chronic pancreatitis. There a re numerous subcentimeter cystic foci scattered throughout the pancreas typical for sidebranch IPMNs. These measure up to 9 mm. Adrenal glands: Unremarkable. Kidneys: The contrast enhanced kidneys demonstrate cortical atrophy and are without hydronephrosis. T he kidneys enhance symmetrically. Scattered renal cysts measure up to 2.4 cm. Abdominal vasculature: The abdominal aorta is normal in course and caliber noting advanced atheroscle rotic calcification. Bowel: There is advanced colonic diverticulosis without CT evidence of acute diverticulitis. No bowel obstruction is seen. There is moderate colonic fecal retention. The appendix is well-visualized and normal. Peritoneum: There is no intraperitoneal free air or abdominal ascites. There is a fat-containing umbi lical hernia. Lymphadenopathy: None. Pelvic viscera: Evaluation of the pelvis is degraded by streak artifact from a right hip arthroplasty . The prostate gland is markedly enlarged and heterogeneous. The bladder is distended, and the wall i s thickened/trabeculated indicating chronic outlet obstruction. There are bilateral fat-containing in guinal hernias. Skeletal structures: The skeletal structures are osteopenic. There are acute right posterolateral 8th and 9th rib fractures. No lytic or blastic lesions are seen. A right hip arthroplasty is in place. S pondylotic and postsurgical change is noted in the lumbar spine. There is degenerative change in the sacroiliac joints with partial fusion on the right. Arthritic changes seen in the left hip. IMPRESSION: 1. There is no evidence of solid organ injury in the abdomen or pelvis. 2. There are acute right posterolateral 8th and 9th rib fractures. 3. Trace hemothorax is seen at the right lung base. 4. Advanced colonic diverticulosis without CT evidence of acute diverticulitis. 5. Significant bladder distention with prostatomegaly and evidence of chronic outlet obstruction. 6. Cardiomegaly. 7. Additional findings as above. ACT 112: Negative or not required by law. Electronically signed by: Darci James M.D. 10/22/2022 4:43 PM
--- NOTE | 2022-10-22 17:12 | XRay Report ---
XR hip RT 2V w pelvis CLINICAL HISTORY: trauma TECHNIQUE: 2 views of the right hip and single frontal view of the pelvis were obtained. Comparison: Comparison is made to hip radiograph 06/06/2017 FINDINGS: There is no evidence of an acute fracture. There is a right hip total arthroplasty without evidence o f periprosthetic fracture. No soft tissue abnormality is seen. IMPRESSION: No evidence of acute osseous injury. ACT 112: Negative or not required by law. Electronically signed by: Keo Garcia M.D. 10/22/2022 5:10 PM
[2022-10-22] MEDS ORDERED: ACETAMINOPHEN 1,000 MG/100 ML VIAL IV STA (18:17)
--- NOTE | 2022-10-22 21:08 | History & Physical Report ---
Date of Service October 22, 2022 Assessment & Plan (1) Fall: Plan: Ground level fall, no head trauma or LOC. Patient s/p right MILES - does complain of pain and instability of right hip. X-ray is negative for acute fracture -Observation to medical -Fall precautions -Check CT Hip -PT/OT evaluation for possible placement needs (2) Atrial fibrillation, persistent: Plan: Rate controlled. On anticoagulation -Continue Dabigatran 150mg po BID (3) History of stroke: Plan: Residual right sided weakness -Continue Atorvastatin 10mg po qHS (4) Hypertension: Plan: Blood pressure well controlled -Continue Amlodipine 2.5mg po daily (5) Dyslipidemia: Plan: Chronic. Stable -Atorvastatin 10mg po qHS History of Present Illness Chief Complaint: fall Primary Care Provider: Jalyn Shirley MD Dwayne Goncalves is a pleasant 87yo male with history of AF on Dabigatran, HTN, HLP, SYD, prior CVA in 2012 with residual right sided weakness presenting from home after sustaining a fall. He reports that he went to PT today and had a very good session. He went home and took a nap for about an hour and a half. After his nap he got up to use the bathroom. He was was pulling up his pants and fell forward and sideways. He hit his RIGHT shoulder and ribs against the wall. He then got wedged in between the wall and commode and had to drag himself out which resulted in a skin tear of the LEFT elbow. He called his family via [employer] and they helped him up. He did have pain in the right hip with weight bearing and he reports the hip felt slightly unsteady. Patient denies fever, chills, chest pain, palpitations, dizziness, cough, SOB. No pleuritic pain In the ER he was afebrile, mildly hypertensive Allergies Allergy/AdvReac Type Severity Reaction Status Date / Time diazepam Allergy Unknown per PCP Verified 10/22/22 16:02 note Home Medications Medication Instructions Recorded Confirmed Type multivitamin (Multiple Vitamins 1 tab PO QAM 11/17/18 10/22/22 History tablet) acetaminophen 650 mg 650 mg PO DIRECTED PRN Pain 08/07/20 10/22/22 History tablet,extended release (Arthritis Pain Relief (acetaminophen) ER) amlodipine 2.5 mg tablet 2.5 mg PO QAM 08/04/22 10/22/22 History furosemide 20 mg tablet 20 mg PO DAILY PRN Edema 08/04/22 10/22/22 History tamsulosin 0.4 mg capsule 0.4 mg PO QAM 08/04/22 10/22/22 History turmeric 400 mg capsule 400 mg PO QAM 08/04/22 10/22/22 History dabigatran etexilate 150 mg 150 mg PO BID #180 caps 08/09/22 10/22/22 Rx capsule (Pradaxa) atorvastatin 10 mg tablet 10 mg PO HS 10/22/22 10/22/22 History cholecalciferol (vitamin D3) 50 50 mcg PO DAILY 10/22/22 10/22/22 History mcg (2,000 unit) capsule (Vitamin D3) finasteride 5 mg tablet 5 mg PO HS 10/22/22 10/22/22 History potassium chloride 10 mEq 10 meq PO DIRECTED PRN TAKE 10/22/22 10/22/22 History tablet,extended release WHEN USES LASIX Past Med/Surg History Medical History Afib follows with Dr. Gates BPH (benign prostatic hyperplasia) Chronic constipation Chronic prostatitis Depression Difficulty with insertion of urinary catheter Dyslipidemia Hearing deficit [place] [facility] History of COVID-19 2021 > no hospitalized> symptoms resolved History of stroke 2012. RUE/RLE weakness. 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 SSS. battery changed 2022. medtronic. checked within last 2 mo. Family History Brother Alzheimer disease Deafness Mother Hypertension Other Family history non-contributory Denies family history of Ovarian cancer Prostate cancer Myocardial infarction Breast cancer Colorectal cancer Social History Smoking Status: Never smoker Second Hand Exposure: No; Do You Dip or Chew Tobacco: No; Hx Alcohol Use: Yes Alcohol type: wine Alcohol Intake Frequency: 2-4 x/Month Hx Substance Use: No Preferred Language: Bolivian Communication Ability: Effective Visual Impairment: Limited Hearing Ability: Use of Hearing Aid [employer] Work[employer] Required: No Beliefs That Will Affect Care: None marital status: / Current Living Situation: Alone current occupational status: retired 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, 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 Feels Safe at Home: Yes Safety Concerns: Feels Safe At This Time Childhood Exposure to Second-Hand Smoke: Yes Diet: regular caffeine: Yes Dental Care, Regularly: Yes Physical Activity Frequency: Does not Exercise Seatbelt Use: always Sunscreen Use: No Do you think of yourself as: straight/heterosexual Assistive Devices: Glasses, Hearing Aid - Bilateral and Walker Review of Systems Review of Systems: All systems reviewed & are unremarkable except as noted in HPI & below Physical Exam Physical Exam: General: patient resting comfortably, NAD, non-toxic in appearance, AA&O x 4 Skin: warm, dry, intact, no rashes or lesions HEENT: NC/AT, PERRL, EOMI, anicteric sclera, conjunctiva without injection, external ear normal to inspection and nontender, nares patent, moist mucus membranes, dentition intact, no oropharyngeal lesions, neck supple, trachea midline, no LAD, no thyromegaly, no JVD Heart: +S1/S2, irregular, no m/r/g Lungs: equal air entry bilaterally, no rales/rhonchi/wheezes Abd: +BS, soft, NT/ND, no masses/organomegaly/ascites Ext: warm, 2+ pulses in UE/LE bilaterally, no clubbing/cyanosis or edema. Tenderness with palpation of right hip. Neuro: nonfocal, patient AA&O x 4, speech intact, no facial droop, moving all extremities on command with equal strength 5/5 Results & Data Results & Data Vital Signs (Past 12 Hours) Vital Signs Temp Pulse Pulse Resp Resp BP Pulse Ox 10/22/22 19:00 84 18 10/22/22 18:00 66 16 96 10/22/22 18:00 151/83 H 10/22/22 17:50 71 13 97 10/22/22 17:40 64 15 96 10/22/22 17:30 70 11 L 96 10/22/22 17:30 149/84 H 10/22/22 17:20 76 11 L 96 10/22/22 17:10 76 16 96 10/22/22 17:08 72 19 98 10/22/22 17:08 182/98 H 10/22/22 17:07 72 14 10/22/22 16:00 65 12 98 10/22/22 16:00 163/122 H 10/22/22 15:50 66 10 L 97 10/22/22 15:40 65 12 97 10/22/22 15:30 70 11 L 98 10/22/22 15:30 153/104 H 10/22/22 15:20 86 13 96 10/22/22 15:10 63 17 96 10/22/22 15:00 68 15 97 10/22/22 17:27 69 10/22/22 14:30 61 8 L 153/106 H 96 10/22/22 14:00 60 19 145/93 H 96 10/22/22 13:47 65 10/22/22 12:58 36.5 C 88 20 198/118 H 97 Pulse Ox O2 Del Method 10/22/22 19:00 94 Room Air 10/22/22 18:00 10/22/22 18:00 10/22/22 17:50 10/22/22 17:40 10/22/22 17:30 10/22/22 17:30 10/22/22 17:20 10/22/22 17:10 10/22/22 17:08 10/22/22 17:08 10/22/22 17:07 10/22/22 16:00 10/22/22 16:00 10/22/22 15:50 10/22/22 15:40 10/22/22 15:30 10/22/22 15:30 10/22/22 15:20 10/22/22 15:10 10/22/22 15:00 10/22/22 17:27 10/22/22 14:30 10/22/22 14:00 10/22/22 13:47 10/22/22 12:58 Room Air Laboratory Results Laboratory Results WBC 6.84 K/ul (4.8-10.8) 10/22/22 15:04 RBC 5.14 M/uL (4.70-6.10) 10/22/22 15:04 Hgb 16.5 g/dl (14.0-18.0) 10/22/22 15:04 Hct 49.4 % (42.0-52.0) 10/22/22 15:04 MCV 96.1 fL (80.0-100.0) 10/22/22 15:04 MCH 32.1 pg (25.0-34.0) 10/22/22 15:04 MCHC 33.4 g/dL (32.0-36.0) 10/22/22 15:04 RDW Std Deviation 46.9 fL (36.4-46.3) H 10/22/22 15:04 RDW Coeff of Candice 13.2 % (11.5-14.5) 10/22/22 15:04 Plt Count 132 K/uL (130-400) 10/22/22 15:04 MPV 11.3 fL (9.4-12.4) 10/22/22 15:04 Immature Gran % (Auto) 0.3 % 10/22/22 15:04 Neut % (Auto) 67.7 % 10/22/22 15:04 Lymph % (Auto) 21.3 % 10/22/22 15:04 [place] % (Auto) 9.1 % 10/22/22 15:04 Eos % (Auto) 1.2 % 10/22/22 15:04 Baso % (Auto) 0.4 % 10/22/22 15:04 Neut # (Auto) 4.63 K/uL (1.40-6.50) 10/22/22 15:04 Lymph # (Auto) 1.46 K/uL (1.2-3.4) 10/22/22 15:04 [place] # (Auto) 0.62 K/uL (0.11-0.59) H 10/22/22 15:04 Eos # (Auto) 0.08 K/uL (0-0.50) 10/22/22 15:04 Baso # (Auto) 0.03 K/uL (0-0.2) 10/22/22 15:04 Immature Gran # (Auto) 0.02 K/uL (0.01-0.20) 10/22/22 15:04 PT 14.3 Seconds (9.0-12.0) H 10/22/22 15:04 INR 1.3 (0.9-1.1) H 10/22/22 15:04 Sodium 142 mmol/L (136-145) 10/22/22 15:04 Potassium 4.3 mmol/L (3.5-5.1) 10/22/22 15:04 Chloride 109 mmol/L (98-107) H 10/22/22 15:04 Carbon Dioxide 27 mmol/L (21-32) 10/22/22 15:04 Anion Gap 6 (3-11) 10/22/22 15:04 BUN 19 mg/dl (6-23) 10/22/22 15:04 Creatinine 0.93 mg/dl (0.6-1.4) 10/22/22 15:04 Est Cr Clr Drug Dosing Not Reportable 10/22/22 15:04 Est GFR ( Amer) 84.7 ml/min 10/22/22 15:04 Est GFR (Non-Af Amer) 73.0 ml/min 10/22/22 15:04 BUN/Creatinine Ratio 20.4 (10-20) H 10/22/22 15:04 Glucose 103 mg/dl (70-99(Fasting)) H 10/22/22 15:04 Calcium 9.6 mg/dl (8.6-10.3) 10/22/22 15:04 Magnesium 2.2 mg/dl (1.7-2.4) 10/22/22 15:04 Total Bilirubin 1.3 mg/dl (0.2-1.0) H 10/22/22 15:04 AST 23 U/L (13-39) 10/22/22 15:04 ALT 13 U/L (7-52) 10/22/22 15:04 Alkaline Phosphatase 75 U/L (34-104) 10/22/22 15:04 Troponin I High Sens 16.7 pg/ml (0-20) 10/22/22 15:04 Total Protein 7.1 gm/dl (6.0-8.3) 10/22/22 15:04 Albumin 4.2 gm/dl (3.4-5.0) 10/22/22 15:04 Globulin 2.9 gm/dl (2.5-4.0) 10/22/22 15:04 Albumin/Globulin Ratio 1.4 (0.9-2) 10/22/22 15:04 TSH 0.910 uIu/ml (0.300-4.500) 10/22/22 15:04 Urine Color Yellow 10/22/22 12:59 Urine Appearance Cloudy (Clear) A 10/22/22 12:59 Urine pH 7.5 (4.5-7.5) 10/22/22 12:59 Ur Specific [place] 1.012 (1.000-1.030) 10/22/22 12:59 Urine Protein Negative (Negative) 10/22/22 12:59 Urine Glucose (UA) Negative (Negative) 10/22/22 12:59 Urine Ketones Negative (Negative) 10/22/22 12:59 Urine Blood Negative (Negative) 10/22/22 12:59 Urine Nitrite Negative (Negative) 10/22/22 12:59 Urine Bilirubin Negative (Negative) 10/22/22 12:59 Urine Urobilinogen Negative (Negative) 10/22/22 12:59 Ur Leukocyte Esterase 3+ (Negative) H 10/22/22 12:59 Urine WBC (Auto) >30 /hpf (0-5) H 10/22/22 12:59 Urine RBC (Auto) 0-4 /hpf (0-4) 10/22/22 12:59 U Hyaline Cast (Auto) 0 /lpf (0-5) 10/22/22 12:59 U Epithel Cells (Auto) 10-20 /lpf (0-5) H 10/22/22 12:59 Urine Bacteria (Auto) 2+ (Negative) H 10/22/22 12:59 SARS-CoV-2 (PCR) NEGATIVE (Negative) 10/22/22 20:37 Influenza Type A (PCR) Negative (Neg) 10/22/22 20:37 Influenza Type B (PCR) Negative (Neg) 10/22/22 20:37 RSV (RT-PCR) Negative (Neg) 10/22/22 20:37 Impressions Abdomen/Pelvis CT 10/22/22 13:05 CT SCAN OF THE ABDOMEN AND PELVIS WITH IV CONTRAST CLINICAL HISTORY: Trauma. COMPARISON STUDY: Abdominal CT dated 05/27/2017 TECHNIQUE: Following the IV administration of 95 cc of Optiray 320, CT scan of the abdomen and pelvis is performed from the lung bases to the proximal femora. Images are reviewed in the axial, sagittal, and coronal planes. IV contrast was administered without complication. A dose lowering technique was utilized adhering to the principles of ALARA. FINDINGS: Lung bases: The heart is enlarged noting a small pericardial effusion. Pacemaker leads are in place. There is trace pneumothorax at the right lung base. No basilar pneumothorax is seen. There is bibasilar scarring/atelectasis. Scattered calcified granulomas are observed. Liver: The contrast-enhanced liver is normal in size, contour, and attenuation. There is no intrahepatic biliary ductal dilatation. The hepatic veins and portal veins are patent. Gallbladder: Unremarkable. Spleen: Normal in size and attenuation. Pancreas: The pancreas is atrophic. Parenchymal calcifications indicate chronic pancreatitis. There are numerous subcentimeter cystic foci scattered throughout the pancreas typical for sidebranch IPMNs. These measure up to 9 mm. Adrenal glands: Unremarkable. Kidneys: The contrast enhanced kidneys demonstrate cortical atrophy and are without hydronephrosis. The kidneys enhance symmetrically. Scattered renal cysts measure up to 2.4 cm. Abdominal vasculature: The abdominal aorta is normal in course and caliber noting advanced atherosclerotic calcification. Bowel: There is advanced colonic diverticulosis without CT evidence of acute diverticulitis. No bowel obstruction is seen. There is moderate colonic fecal retention. The appendix is well-visualized and normal. Peritoneum: There is no intraperitoneal free air or abdominal ascites. There is a fat-containing umbilical hernia. Lymphadenopathy: None. Pelvic viscera: Evaluation of the pelvis is degraded by streak artifact from a right hip arthroplasty. The prostate gland is markedly enlarged and heterogeneous. The bladder is distended, and the wall is thickened/trabeculated indicating chronic outlet obstruction. There are bilateral fat-containing inguinal hernias. Skeletal structures: The skeletal structures are osteopenic. There are acute right posterolateral 8th and 9th rib fractures. No lytic or blastic lesions are seen. A right hip arthroplasty is in place. Spondylotic and postsurgical change is noted in the lumbar spine. There is degenerative change in the sacroiliac joints with partial fusion on the right. Arthritic changes seen in the left hip. IMPRESSION: 1. There is no evidence of solid organ injury in the abdomen or pelvis. 2. There are acute right posterolateral 8th and 9th rib fractures. 3. Trace hemothorax is seen at the right lung base. 4. Advanced colonic diverticulosis without CT evidence of acute diverticulitis. 5. Significant bladder distention with prostatomegaly and evidence of chronic outlet obstruction. 6. Cardiomegaly. 7. Additional findings as above. ACT 112: Negative or not required by law. Electronically signed by: Darci James M.D. 10/22/2022 4:[address] 10/22/22 13:05 CT chest diagnostic w con CLINICAL HISTORY: trauma TECHNIQUE: Multidetector row helical CT of the chest was performed with intravenous contrast. Coronal and sagittal reformations were obtained. Automated dose lowering techniques and/or adjustment according to patient size were utilized for this exam. CT DOSE: 2596.78 mGy.cm Comparison: Comparison is made to CTA chest 09/11/2014 FINDINGS: Lungs and pleura: Pneumothorax and underlying atelectasis are seen in the right lower lung. There is a 5 mm nodule in the left lower lobe (series 6 image 103). Calcified granulomata are seen. Heart and pericardium: Heart size is normal. No pericardial effusion. Vessels: Moderate atherosclerotic changes in the aorta and coronary arteries. Pulmonary trunk measures 32 mm in diameter. Mediastinum and harry: Scattered partially calcified lymph nodes are seen. Chest wall and lower neck: Unremarkable. Abdomen: For findings below the diaphragm, please refer to CT of the abdomen dated the same. Bones: Flowing osteophytes are seen compatible with DISH. There are nondisplaced fractures of the right lateral eighth and ninth ribs. There are likely chronic fractures of additional bilateral ribs which were not seen on the prior exam. IMPRESSION: 1. Nondisplaced right rib fractures are seen with associated hemothorax but no evidence of pneumothorax. 2. Calcified pulmonary nodules and pulmonary granuloma may represent prior granulomatous disease. 3. Small pulmonary nodules above. According to Fleischner criteria, no follow- up is required in low risk patients, in high-risk patients, a 12 month follow-up CT can be optionally performed. ACT 112: Negative or not required by law. Electronically signed by: Keo Garcia M.D. 10/22/2022 4:33 PM Hip/Pelvis X-Ray 10/22/22 13:05 XR hip RT 2V w pelvis CLINICAL HISTORY: trauma TECHNIQUE: 2 views of the right hip and single frontal view of the pelvis were obtained. Comparison: Comparison is made to hip radiograph 06/06/2017 FINDINGS: There is no evidence of an acute fracture. There is a right hip total arthroplasty without evidence of periprosthetic fracture. No soft tissue abnormality is seen. IMPRESSION: No evidence of acute osseous injury. ACT 112: Negative or not required by law. Electronically signed by: Keo Garcia M.D. 10/22/2022 5:10 PM PG Care Time/CCT Total # of Minutes Spent Total Time Spent with Patient: Total time spent is greater than 50% in coordination of care (as documented) at patient's floor/unit and/or counseling patient: Coding Level of Care Code 52436 INT INP/OBS CARE MIN Diagnoses Fall W19.XXXA Atrial fibrillation, persistent I48.19 History of stroke Z86.73 Hypertension I10 Hypertension type: essential hypertension Dyslipidemia E78.5 (4) Hypertension Hypertension type: essential hypertension Qualified Code(s): I10 - Essential (primary) hypertension
[2022-10-22 21:28] LABS: Influenza A virus by PCR Negative (Neg); Influenza B virus by PCR Negative (Neg); RSV by PCR Negative (Neg); SARS CoV2 RNA(COVID-19) Ceph NEGATIVE (Negative)
[2022-10-23] MEDS: ACETAMINOPHEN 325 MG TAB PO PRN ×3 (05:36→20:41)
[2022-10-23 07:47] LABS: Hemoglobin 14.4 g/dl (14.0-18.0); Mean Corpuscular Hemoglobin 32.1 pg (25.0-34.0); Mean Corpuscular Hgb Conc 34.3 g/dL (32.0-36.0); Mean Corpuscular Volume 93.8 fL (80.0-100.0); Mean Platelet Volume 11.2 fL (9.4-12.4); Platelet Count 128 K/uL (130-400); RDW Coefficient of Variation 13.2 % (11.5-14.5); RDW Standard Deviation 45.3 fL (36.4-46.3); Red Blood Count 4.48 M/uL (4.70-6.10)
[2022-10-23] MEDS: TAMSULOSIN HCL 0.4 MG CAP PO SCH (08:02)
[2022-10-23] MEDS: amLODIPine BESYLATE 5 MG TAB PO SCH (08:02)
[2022-10-23] MEDS: DABIGATRAN ETEXILATE 75 MG CAP PO SCH ×2 (08:02→20:42)
[2022-10-23 08:05] LABS: Albumin Level 3.3 gm/dl (3.4-5.0); BUN Creatinine Ratio 17.3 (10-20); Bilirubin Direct 0.3 mg/dl (0-0.2); Bilirubin,Total 1.2 mg/dl (0.2-1.0); Calcium 8.5 mg/dl (8.6-10.3); Creatinine Clr Calc Pharmacy 54.5 ml/min; Est GFR (African American) 79.5 ml/min; Est GFR (Non-African American) 68.6 ml/min; Total Protein 5.6 gm/dl (6.0-8.3)
--- NOTE | 2022-10-23 13:58 | Hospitalist Progress Note ---
Date of Service October 23, 2022 Assessment & Plan (1) Fall: Plan: Acute/stable - Mechanical ground level fall resulting in R nondisplaced rib fx - Observation to medical - Fall precautions - Check CT Hip - ordered but not yet performed, xray w/o acute fracture - PT/OT evaluation for possible placement needs, will eval tomorrow 10/24 - Does live alone in one story home, currently participating in outpatient therapy program but would be agreeable to rehab if deemed necessary (2) Closed rib fracture: Plan: Acute/stable - Occurred secondary to his fall - Incentive spirometry use q1h - Pain control - currently controlled with APAP (3) Atrial fibrillation, persistent: Plan: Chronic/stable - Rate controlled. On anticoagulation - Continue Dabigatran 150mg po BID (4) History of stroke: Plan: Chronic/stable - Residual right sided weakness - Continue Atorvastatin 10mg po qHS (both for dyslipidemia and cerebrovascular disease) (5) Hypertension: Plan: Chronic/stable - Blood pressure well controlled - Continue Amlodipine 2.5mg po daily Plan Continue stay until evaluated by PT/OT to determine appropriate disposition for discharge. Plan d/w Dr. Oakes. Admission and Anticipated Discharge Date Admission Date: October 22, 2022 Supervising Physician Co-Signing Physician Notes The patient was not seen by me. The chart was reviewed. Case discussed with ANNE Alfred. Agree with assessment and plan Subjective Patient seen on rounds this morning. Has some right sided soreness from his fall particularly along the right chest wall. He denies chest pain, dyspnea, lightheadedness, dizziness, headache, blurred vision, numbness/tingling, or focal weakness. Denies gu symptoms. He currently lives alone, his children live close by and check on him. He is currently doing therapy as an outpatient. Physical Exam Physical Exam: GENERAL: 87 yo well-developed, well-nourished elderly M. AAOx4. NAD. LUNGS: Clear to auscultation bilaterally w/o W/R/R. CARDIOVASCULAR: S1 S2 regular, paced EXTREMITIES: No edema. Non-tender. Peripheral pulses +2/4. Results & Data Results & Data Vital Signs (Past 12 Hours) Vital Signs Temp Pulse Resp BP Pulse Ox O2 Del Method 10/23/22 07:37 36.7 C 60 16 131/77 94 Room Air Laboratory Results 10/23/22 07:18 10/23/22 07:18 PG Care Time/CCT Total # of Minutes Spent Total Time Spent with Patient: Total time spent is greater than 50% in coordination of care (as documented) at patient's floor/unit and/or counseling patient: Coding Level of Care Code 57412 SUB INP/OBS CARE 2/35MIN Diagnoses Fall W19.XXXA Closed rib fracture S22.39XA Atrial fibrillation, persistent I48.19 History of stroke Z86.73 Hypertension I10 Hypertension type: essential hypertension (5) Hypertension Hypertension type: essential hypertension Qualified Code(s): I10 - Essential (primary) hypertension
[2022-10-23] MEDS ORDERED: cefTRIAXone SODIUM 2,000 MG in DEXTROSE 5% 50 ML IV SCH (15:00)
--- NOTE | 2022-10-23 16:20 | CT Scan Report ---
RIGHT HIP CT CT DOSE: 923.44 mGy.cm HISTORY: Right hip pain. fall with pain - ?fracture TECHNIQUE: Multiaxial CT images of the right hip were performed and reformatted in the sagittal and c oronal plane without the use of contrast. A dose lowering technique was utilized adhering to the rosamaria Ravi. COMPARISON: Abdomen and pelvis CT and right hip radiograph 10/22/2022. 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 The metallic artifact results in suboptimal evaluation of the visualized osseous structures. However, no definite acute fracture or dislocation within the right hip. There is heterotopic ossification anterior to the proximal right femur. The visualized pel reynaldo bones appear grossly intact. Mild subcutaneous edema within the lateral aspect of the right hip. There is residual contrast within the bladder from the recent CT examination. The prostate gland anthony ins enlarged and there is evidence for chronic bladder outlet obstruction. Focal increased density wi thin the lateral aspect of the right gluteus alfonso muscle best seen on image 367. This measures amber roximately 6.9 x 2.4 cm and favors an intramuscular hematoma. IMPRESSION: 1. No definite acute fracture or dislocation within the right hip. 2. 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 3. A 6.9 x 2.4 cm right gluteus alfonso intramuscular hematoma. ACT 112: Negative or not required by law. Electronically signed by: Sanjiv Morse M.D. 10/23/2022 4:18 PM
--- NOTE | 2022-10-23 20:56 | Electrocardiogram Report ---
Test Reason : Blood Pressure : / mmHG Vent. Rate : 060 BPM Atrial Rate : 625 BPM P-R Int : 000 ms QRS Dur : 180 ms QT Int : 508 ms P-R-T Axes : 000 -77 096 degrees QTc Int : 508 ms Ventricular-paced rhythm Abnormal ECG When compared with ECG of 11-AUG-2022 12:10, Vent. rate has decreased BY 10 BPM Confirmed by Herberth Florez ([id number]) on 10/23/2022 8:55:49 PM Referred By: Confirmed By:Herberth Florez
[2022-10-23] MEDS ORDERED: ATORVASTATIN 10 MG TAB PO SCH (21:00)
[2022-10-23] MEDS ORDERED: FINASTERIDE 5 MG TAB PO SCH (21:00)
[2022-10-24] MEDS: ACETAMINOPHEN 325 MG TAB PO PRN (06:20)
[2022-10-24] MEDS: amLODIPine BESYLATE 5 MG TAB PO SCH (08:19)
[2022-10-24] MEDS: DABIGATRAN ETEXILATE 75 MG CAP PO SCH ×2 (08:19→08:24)
[2022-10-24] MEDS: TAMSULOSIN HCL 0.4 MG CAP PO SCH (08:19)
--- NOTE | 2022-10-24 12:44 | Discharge Summary ---
Date of Service October 24, 2022 Admission HPI Per Admitting Provider Dwayne Goncalves is a pleasant 87yo male with history of AF on Dabigatran, HTN, HLP, SYD, prior CVA in 2012 with residual right sided weakness presenting from home after sustaining a fall. He reports that he went to PT today and had a very good session. He went home and took a nap for about an hour and a half. After his nap he got up to use the bathroom. He was was pulling up his pants and fell forward and sideways. He hit his RIGHT shoulder and ribs against the wall. He then got wedged in between the wall and commode and had to drag himself out which resulted in a skin tear of the LEFT elbow. He called his family via [employer] and they helped him up. He did have pain in the right hip with weight bearing and he reports the hip felt slightly unsteady. Patient denies fever, chills, chest pain, palpitations, dizziness, cough, SOB. No pleuritic pain In the ER he was afebrile, mildly hypertensive Principal Diagnosis Fall with resultant rib fractures and R hip hematoma Discharge Exam GENERAL: 87 yo well-developed, well-nourished elderly M. AAOx4. NAD. LUNGS: Clear to auscultation bilaterally w/o W/R/R. CARDIOVASCULAR: S1 S2 regular, paced EXTREMITIES: No edema. Non-tender. Peripheral pulses +2/4. Discharge Data Allergies Allergy/AdvReac Type Severity Reaction Status Date / Time diazepam Allergy Unknown per PCP Verified 10/22/22 16:02 note Consultations 10/22/22 20:08 ED Decision to Admit Stat Ordered Studies Abdomen/Pelvis CT 10/22/22 13:05 CT SCAN OF THE ABDOMEN AND PELVIS WITH IV CONTRAST CLINICAL HISTORY: Trauma. COMPARISON STUDY: Abdominal CT dated 05/27/2017 TECHNIQUE: Following the IV administration of 95 cc of Optiray 320, CT scan of the abdomen and pelvis is performed from the lung bases to the proximal femora. Images are reviewed in the axial, sagittal, and coronal planes. IV contrast was administered without complication. A dose lowering technique was utilized adhering to the principles of ALARA. FINDINGS: Lung bases: The heart is enlarged noting a small pericardial effusion. Pacemaker leads are in place. There is trace pneumothorax at the right lung base. No basilar pneumothorax is seen. There is bibasilar scarring/atelectasis. Scattered calcified granulomas are observed. Liver: The contrast-enhanced liver is normal in size, contour, and attenuation. There is no intrahepatic biliary ductal dilatation. The hepatic veins and portal veins are patent. Gallbladder: Unremarkable. Spleen: Normal in size and attenuation. Pancreas: The pancreas is atrophic. Parenchymal calcifications indicate chronic pancreatitis. There are numerous subcentimeter cystic foci scattered throughout the pancreas typical for sidebranch IPMNs. These measure up to 9 mm. Adrenal glands: Unremarkable. Kidneys: The contrast enhanced kidneys demonstrate cortical atrophy and are without hydronephrosis. The kidneys enhance symmetrically. Scattered renal cysts measure up to 2.4 cm. Abdominal vasculature: The abdominal aorta is normal in course and caliber noting advanced atherosclerotic calcification. Bowel: There is advanced colonic diverticulosis without CT evidence of acute diverticulitis. No bowel obstruction is seen. There is moderate colonic fecal retention. The appendix is well-visualized and normal. Peritoneum: There is no intraperitoneal free air or abdominal ascites. There is a fat-containing umbilical hernia. Lymphadenopathy: None. Pelvic viscera: Evaluation of the pelvis is degraded by streak artifact from a right hip arthroplasty. The prostate gland is markedly enlarged and heterogeneous. The bladder is distended, and the wall is thickened/trabeculated indicating chronic outlet obstruction. There are bilateral fat-containing inguinal hernias. Skeletal structures: The skeletal structures are osteopenic. There are acute right posterolateral 8th and 9th rib fractures. No lytic or blastic lesions are seen. A right hip arthroplasty is in place. Spondylotic and postsurgical change is noted in the lumbar spine. There is degenerative change in the sacroiliac joints with partial fusion on the right. Arthritic changes seen in the left hip. IMPRESSION: 1. There is no evidence of solid organ injury in the abdomen or pelvis. 2. There are acute right posterolateral 8th and 9th rib fractures. 3. Trace hemothorax is seen at the right lung base. 4. Advanced colonic diverticulosis without CT evidence of acute diverticulitis. 5. Significant bladder distention with prostatomegaly and evidence of chronic outlet obstruction. 6. Cardiomegaly. 7. Additional findings as above. ACT 112: Negative or not required by law. Electronically signed by: Darci James M.D. 10/22/2022 4:[address] 10/22/22 13:05 CT chest diagnostic w con CLINICAL HISTORY: trauma TECHNIQUE: Multidetector row helical CT of the chest was performed with intravenous contrast. Coronal and sagittal reformations were obtained. Automated dose lowering techniques and/or adjustment according to patient size were utilized for this exam. CT DOSE: 2596.78 mGy.cm Comparison: Comparison is made to CTA chest 09/11/2014 FINDINGS: Lungs and pleura: Pneumothorax and underlying atelectasis are seen in the right lower lung. There is a 5 mm nodule in the left lower lobe (series 6 image 103). Calcified granulomata are seen. Heart and pericardium: Heart size is normal. No pericardial effusion. Vessels: Moderate atherosclerotic changes in the aorta and coronary arteries. Pulmonary trunk measures 32 mm in diameter. Mediastinum and harry: Scattered partially calcified lymph nodes are seen. Chest wall and lower neck: Unremarkable. Abdomen: For findings below the diaphragm, please refer to CT of the abdomen dated the same. Bones: Flowing osteophytes are seen compatible with DISH. There are nondisplaced fractures of the right lateral eighth and ninth ribs. There are likely chronic fractures of additional bilateral ribs which were not seen on the prior exam. IMPRESSION: 1. Nondisplaced right rib fractures are seen with associated hemothorax but no evidence of pneumothorax. 2. Calcified pulmonary nodules and pulmonary granuloma may represent prior granulomatous disease. 3. Small pulmonary nodules above. According to Fleischner criteria, no follow- up is required in low risk patients, in high-risk patients, a 12 month follow-up CT can be optionally performed. ACT 112: Negative or not required by law. Electronically signed by: Keo Garcia M.D. 10/22/2022 4:33 PM Hip/Pelvis X-Ray 10/22/22 13:05 XR hip RT 2V w pelvis CLINICAL HISTORY: trauma TECHNIQUE: 2 views of the right hip and single frontal view of the pelvis were obtained. Comparison: Comparison is made to hip radiograph 06/06/2017 FINDINGS: There is no evidence of an acute fracture. There is a right hip total arthroplasty without evidence of periprosthetic fracture. No soft tissue abnormality is seen. IMPRESSION: No evidence of acute osseous injury. ACT 112: Negative or not required by law. Electronically signed by: Keo Garcia M.D. 10/22/2022 5:[address] 10/22/22 22:[address] DOSE: 923.44 mGy.cm HISTORY: Right hip pain. fall with pain - ?fracture TECHNIQUE: Multiaxial CT images of the right hip were performed and reformatted in the sagittal and coronal plane without the use of contrast. A dose lowering technique was utilized adhering to the principles of ALARA. COMPARISON: Abdomen and pelvis CT and right hip radiograph 10/22/2022. 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 The metallic artifact results in suboptimal evaluation of the visualized osseous structures. However, no definite acute fracture or dislocation within the right hip. There is heterotopic ossification anterior to the proximal right femur. The visualized pelvic bones appear grossly intact. Mild subcutaneous edema within the lateral aspect of the right hip. There is residual contrast within the bladder from the recent CT examination. The prostate gland remains enlarged and there is evidence for chronic bladder outlet obstruction. Focal increased density within the lateral aspect of the right gluteus alfonso muscle best seen on image 367. This measures approximately 6.9 x 2.4 cm and favors an intramuscular hematoma. IMPRESSION: 1. No definite acute fracture or dislocation within the right hip. 2. 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 3. A 6.9 x 2.4 cm right gluteus alfonso intramuscular hematoma. ACT 112: Negative or not required by law. Electronically signed by: Sanjiv Morse M.D. 10/23/2022 4:18 PM Hospital Course (1) Fall: - Mechanical ground level fall resulting in R nondisplaced rib fx and R hip hematoma - Placed in observation to medical floor - Fall precautions - CT hip noted ~7cm hematoma - PT/OT evaluation ordered - did well transferring and ambulating in [place] with PT this AM, ambulated 200 ft with wheeled walker - Does live alone in one story home, currently participating in outpatient therapy program which he will need to continue with upon d/c - Would encourage use of OTC APAP as needed for his hip pain (2) Closed rib fracture: - Occurred secondary to his fall - Continued to encourage use of incentive spirometer q4h - Pain control - currently controlled with APAP (3) Atrial fibrillation, persistent: - Rate controlled. 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 He did recieve 2 doses of IV Rocephin in house but will not continue antibiotics upon discharge. He ambulated well with therapy today, and therefore is felt to be medically and hemodynamically stable for discharge home today. I did offer to contact his son and he stated he would call him. I encouraged him to follow up with his PCP within 1 week of discharge or sooner if needed. Plan has been d/w Dr. Oakes who is in agreement with aforementioned. Total Time Total Time Spent Total Time Spent (In Minutes): 35 minutes Discharge Plan Discharge Items Patient Disposition: Home - Self-Care Reason For Visit: FALL Discharge Diagnosis: fall with right rib fractures and bruised R hip Activity: Resume your previous activity Activity Comment: with wheeled walker Non-emergency contact: Primary Care Provider Call non-emergency contact if: you have any medication questions, your symptoms worsen and your pain is worsening Follow-up/Referrals: Jalyn Shirley MD [Primary Care Provider] - 11/02/22 11:00 am (APPOINTMENT WITH GINI GARCIA) Diet: Regular Addtl Attending Provider Instructions: You were hospitalized due to a fall. You were found to have suffered 2 rib fractures on your right side that are stable as well as a bruised right hip. The CAT scan done of your hip showed a hematoma due to the fall, this will resolve over time. We continue to encourage you to use the incentive spirometer (breathing exercise device) at home sporadically throughout the day. You may use Tylenol as needed for pain in your hip or ribs. Do not use Ibuprofen, Aleve, Advil, or Motrin due to taking Pradaxa. You were seen by physical therapy during your stay and did well walking in the halls with a walker. You will be provided a prescription for a new wheeled walker which will be more stable than the walker you currently have at home. You should continue participating in physical therapy as an outpatient at [facility]. Please contact your family doctor on Wednesday 10/25 to schedule a hospital follow up. If you have any questions after you leave the hospital, call the nonemergency number listed on your discharge paperwork. In the event of a medical emergency, call 911. Pending Studies at Discharge: No Stand-Alone Forms: [facility], Smoking Cessation Medications and DC Order Prescriptions: Continued Pradaxa 150 mg capsule 150 mg PO BID Qty: 180 3RF multivitamin [Multiple Vitamins] tablet 1 tab PO QAM acetaminophen [Arthritis Pain Relief (acetam)] 650 mg tablet extended release 650 mg PO DIRECTED PRN (Reason: Pain) turmeric 400 mg Capsule 400 mg PO QAM amlodipine 2.5 mg tablet 2.5 mg PO QAM Rx Instructions: TAKE 1 TABLET BY MOUTH EVERY DAY IN THE MORNING tamsulosin 0.4 mg capsule 0.4 mg PO QAM furosemide 20 mg tablet 20 mg PO DAILY PRN (Reason: Edema) Rx Instructions: 20 mg orally daily as needed for edema; atorvastatin 10 mg tablet 10 mg PO HS potassium chloride 10 mEq tablet extended release 10 meq PO DIRECTED PRN (Reason: TAKE WHEN USES LASIX) Rx Instructions: 10 mEq orally daily on days when furosemide is taken finasteride 5 mg tablet 5 mg PO HS cholecalciferol (vitamin D3) [Vitamin D3] 50 mcg (2,000 unit) Capsule 50 mcg PO DAILY Discharge Orders: Discharge Order (Routine); Ordered 10/24/22 Ordered By: María Shankar/Other Patient Handouts: Falls Prevent Adjust Living Space Admission Data Admit Date/Time: 10/22/22 21:08 Attending Provider: Gerardo Oakes Admit Provider: Katya Fink Primary Care Provider: Jalyn Shirley Other Providers: Katya Fink Other Interventions: Discharge Summary Assessment (RN) Last Done: 10/24/22 12:40 Supervising Physician Co-Signing Physician Notes The patient was not seen by me. The chart was reviewed. Case discussed with ANNE Alfred. Agree with assessment and plan Coding Level of Care Code 06863 INP/OBS DISCH >30 MIN Diagnoses Fall W19.XXXA Closed rib fracture S22.39XA Atrial fibrillation, persistent I48.19 History of stroke Z86.73 Hypertension I10 Hypertension type: essential hypertension
== END 2022-10-24 13:19 | disposition home or self-care (01) ==
LOC: ED 12:53 → 3W 12:53 → SUATTDRO 21:08 → 3W 22:18